=== PATIENT | female | born 1960 | race Caucasian/White ===

== ENCOUNTER 2020-06-17 17:22 | Outpatient (REF) | payer OTHER, SELFPAY ==
--- NOTE | 2020-06-17 | MM_ITS ---
EXAMINATION: MM SCREENING DIGITAL BREAST TOMOSYNTHESIS, BILATERAL CLINICAL INFORMATION: Screening. Asymptomatic. The lifetime risk of breast cancer based on the Tyrer-Cuzick Model is 7%. COMPARISON: Mammography: 10/24/2018, 09/09/2017, 07/09/2016, 06/26/2016 TECHNIQUE: Digital breast tomosynthesis is performed in both the craniocaudal and mediolateral oblique views along with computer-aided detection (CAD). Synthesized 2D images are generated from the tomosynthesis. FINDINGS: The breasts are extremely dense, which lowers the sensitivity of mammography (ACR BI-RADS breast composition Category d). There are no significant masses, abnormal calcifications, or other abnormalities. Parenchymal pattern is similar to prior exams. No significant changes. MM/MM tomosynthesis screening BI IMPRESSION: No significant changes from prior studies. ASSESSMENT: BI-RADS 1: Negative RECOMMENDATION: Routine annual mammography screening. This patient's information was entered into a reminder system with a target due date for their next mammogram.
== END 2020-06-17 17:23 | disposition home or self-care (01) ==
LOC: HO.MAMMO 17:22
PROVIDERS: PCP Internal Medicine; Visit Provider Internal Medicine
DX: Z12.31 Encounter for screening mammogram for malignant neoplasm of breast (principal)
CPT/HCPCS: 77063; 77067

== ENCOUNTER → 2020-08-06 15:20 | Outpatient (BNVA) | payer OTHER, SELFPAY | PROVIDERS: PCP Internal Medicine; Visit Provider Internal Medicine Cardiovascular Disease | DX: R93.1 Abnormal findings on diagnostic imaging of heart and coronary circulation (principal) | CPT/HCPCS: 93005; 99212 ==

== ENCOUNTER 2020-08-10 09:53 | Outpatient (REF) | payer OTHER, SELFPAY ==
[2020-08-10 10:24] LABS: Basophils Absolute Auto 0.1 X10*3/uL (0.0-0.2); Basophils Percent Auto 1.5 % (0-2); Eosinophils Absolute Auto 0.2 X10*3/uL (0.0-0.4); Hematocrit 40.1 % (37-47); Hemoglobin 13.3 g/dl (12.0-16.0); Imm Gran Abs Auto 0.01 X10*3/uL (0.00-0.03); Imm Gran Pct Auto 0.2 % (0.0-0.4); Lymphocytes Absolute Auto 1.6 X10*3/uL (1.2-4.9); Lymphocytes Percent Auto 33.6 % (20-40); MANUAL DIFF FLAG NO; Mean Corpuscular HGB Conc 33.2 g/dl (31.0-35.0); Mean Corpuscular Hemoglobin 30.7 pg (27.0-33.0); Mean Corpuscular Volume 92.6 fL (80-98); Mean Platelet Volume 9.3 fL (9.4-12.3); Monocytes Absolute Auto 0.3 X10*3/uL (0.1-1.2); Neutrophils Absolute Auto 2.5 X10*3/uL (2.0-8.3); Neutrophils Percent Auto 53.7 % (45-73); Platelet Count 228 X10*3/uL (160-400); Red Blood Count 4.33 X10*6/uL (4.20-5.50); Red Cell Distribution Width 12.4 % (11.0-16.0); White Blood Count 4.7 X10*3/uL (4.8-10.8)
[2020-08-10 11:01] LABS: Cholesterol 219 mg/dL; HDL Cholesterol 81 mg/dL; LDL Cholesterol Calculated 128 mg/dl; Triglycerides 53 mg/dL
[2020-08-10 11:02] LABS: Alanine Aminotransferase 38 U/L (0-31); Albumin Level 4.3 g/dL (3.5-5.0); Alkaline Phosphatase 62 U/L (39-117); Anion Gap 9 (12-20); Aspartate Amino Transferase 30 U/L (5-31); Bilirubin Total 0.5 mg/dL (0.0-1.0); Blood Urea Nitrogen 11 mg/dL (9-16); Calcium 9.1 mg/dL (8.4-10.2); Carbon Dioxide 30 mmol/L (22-29); Chloride 102 mmol/L (96-108); Cholesterol 219 mg/dL; Estimated Glomerular Filt Rate > 60; Glucose Fasting 96 mg/dL (60-99); HDL Cholesterol 79 mg/dL; LDL Cholesterol Calculated 130 mg/dl; Potassium 4.5 mmol/l (3.3-5.1); Sodium 136 mmol/L (135-145); Total Protein 6.7 g/dL (6.5-8.0); Triglycerides 53 mg/dL
[2020-08-10 11:17] LABS: T4 Thyroxine 7.3 ug/dL (4.5-12.0); Thyroid Stimulating Hormone 3.03 uIU/mL (0.32-4.0); Vitamin D 25-OH Total 43.7 ng/mL (>30)
[2020-08-12 08:46] LABS: Folate 10.8 ng/mL (> or = 4.0); Vitamin B12 562 pg/mL (200-900)
[2020-08-12 14:02] LABS: CRP High Sensitivity <0.3 mg/L
== END 2020-08-10 09:54 | disposition home or self-care (01) ==
LOC: HO.LAB 09:53
PROVIDERS: Absent Provider Internal Medicine Cardiovascular Disease; PCP Internal Medicine; Visit Provider Internal Medicine
DX: I25.10 Atherosclerotic heart disease of native coronary artery without angina pectoris (principal); R93.1 Abnormal findings on diagnostic imaging of heart and coronary circulation; F33.9 Major depressive disorder, recurrent, unspecified; I10 Essential (primary) hypertension; Z82.49 Family history of ischemic heart disease and other diseases of the circulatory system
CPT/HCPCS: 36415; 80053; 80061; 82306; 82607; 82746; 84436; 84443; 85025; 86141

== ENCOUNTER 2020-12-07 08:19 | Outpatient (REF) | payer OTHER, SELFPAY ==
[2020-12-07 09:36] LABS: Alanine Aminotransferase 28 U/L (0-31); Albumin Level 4.4 g/dL (3.5-5.0); Alkaline Phosphatase 66 U/L (39-117); Anion Gap 14 (12-20); Aspartate Amino Transferase 24 U/L (5-31); Bilirubin Total 0.3 mg/dL (0.0-1.0); Blood Urea Nitrogen 16 mg/dL (9-16); Calcium 9.3 mg/dL (8.4-10.2); Carbon Dioxide 27 mmol/L (22-29); Chloride 101 mmol/L (96-108); Cholesterol 149 mg/dL; Estimated Glomerular Filt Rate 58; Glucose Random 103 mg/dL (60-115); HDL Cholesterol 74 mg/dL; LDL Cholesterol Calculated 67 mg/dl; Potassium 5.8 mmol/L (3.3-5.1); Sodium 136 mmol/L (135-145); Total Protein 6.7 g/dL (6.5-8.0); Triglycerides 41 mg/dL
== END 2020-12-07 08:20 | disposition home or self-care (01) ==
LOC: HO.LAB 08:19
PROVIDERS: PCP Internal Medicine; Visit Provider Internal Medicine
DX: E78.5 Hyperlipidemia, unspecified (principal); E78.00 Pure hypercholesterolemia, unspecified
CPT/HCPCS: 36415; 80053; 80061

== ENCOUNTER 2020-12-14 07:28 | Outpatient (REF) | payer OTHER, SELFPAY ==
[2020-12-14 08:26] LABS: Anion Gap 11 (12-20); Blood Urea Nitrogen 14 mg/dL (9-16); Calcium 9.7 mg/dL (8.4-10.2); Carbon Dioxide 29 mmol/L (22-29); Chloride 98 mmol/L (96-108); Estimated Glomerular Filt Rate > 60; Glucose Random 103 mg/dL (60-115); Potassium 5.4 mmol/L (3.3-5.1); Sodium 133 mmol/L (135-145)
== END 2020-12-14 07:29 | disposition home or self-care (01) ==
LOC: HO.LAB 07:28
PROVIDERS: Visit Provider Internal Medicine
DX: E87.5 Hyperkalemia (principal)
CPT/HCPCS: 36415; 80048

== ENCOUNTER 2021-01-25 07:33 | Outpatient (REF) | payer OTHER, SELFPAY ==
[2021-01-25 08:37] LABS: Estimated Average Glucose 117 mg/dL; Hemoglobin A1c % 5.7 %
[2021-01-25 08:48] LABS: Anion Gap 14 (12-20); Blood Urea Nitrogen 9 mg/dL (9-16); Calcium 9.2 mg/dL (8.4-10.2); Carbon Dioxide 25 mmol/L (22-29); Chloride 102 mmol/L (96-108); Estimated Glomerular Filt Rate > 60; Glucose Random 102 mg/dL (60-115); Potassium 5.8 mmol/L (3.3-5.1); Sodium 135 mmol/L (135-145)
== END 2021-01-25 07:34 | disposition home or self-care (01) ==
LOC: HO.LAB 07:33
PROVIDERS: PCP Internal Medicine; Visit Provider Internal Medicine
DX: E87.5 Hyperkalemia (principal); R73.01 Impaired fasting glucose
CPT/HCPCS: 36415; 80048; 83036

== ENCOUNTER 2021-02-03 06:33 | Outpatient (REF) | payer OTHER, SELFPAY ==
[2021-02-03 08:13] LABS: Anion Gap 15 (12-20); Blood Urea Nitrogen 12 mg/dL (9-16); Calcium 9.2 mg/dL (8.4-10.2); Carbon Dioxide 24 mmol/L (22-29); Chloride 102 mmol/L (96-108); Estimated Glomerular Filt Rate > 60; Glucose Random 96 mg/dL (60-115); Potassium 4.7 mmol/L (3.3-5.1); Sodium 136 mmol/L (135-145)
== END 2021-02-03 06:34 | disposition home or self-care (01) ==
LOC: HO.LAB 06:33
PROVIDERS: PCP Internal Medicine; Visit Provider Internal Medicine
DX: E87.5 Hyperkalemia (principal)
CPT/HCPCS: 36415; 80048

== ENCOUNTER → 2021-02-04 15:23 | Outpatient (BNVA) | payer OTHER, SELFPAY | PROVIDERS: PCP Internal Medicine; Referring Provider Internal Medicine; Visit Provider Internal Medicine Cardiovascular Disease | DX: R93.1 Abnormal findings on diagnostic imaging of heart and coronary circulation (principal) | CPT/HCPCS: 99212 ==

== ENCOUNTER 2021-03-29 07:28 | Outpatient (REF) | payer OTHER, SELFPAY ==
[2021-03-29 08:32] LABS: MANUAL DIFF FLAG NO
[2021-03-29 08:44] LABS: Basophils Absolute Auto 0.1 X10*3/uL (0.0-0.2); Basophils Percent Auto 1.1 % (0-2); Eosinophils Absolute Auto 0.2 X10*3/uL (0.0-0.4); Eosinophils Percent Auto 3.4 % (0-4); Hematocrit 43.5 % (37-47); Hemoglobin 14.2 g/dl (12.0-16.0); Imm Gran Abs Auto 0.02 X10*3/uL (0.00-0.03); Imm Gran Pct Auto 0.4 % (0.0-0.4); Lymphocytes Absolute Auto 1.9 X10*3/uL (1.2-4.9); Lymphocytes Percent Auto 34.9 % (20-40); Mean Corpuscular HGB Conc 32.6 g/dl (31.0-35.0); Mean Corpuscular Hemoglobin 30.3 pg (27.0-33.0); Mean Corpuscular Volume 92.9 fL (80-98); Mean Platelet Volume 10.1 fL (9.4-12.3); Monocytes Absolute Auto 0.5 X10*3/uL (0.1-1.2); Monocytes Percent Auto 8.4 % (2-11); Neutrophils Absolute Auto 2.8 X10*3/uL (2.0-8.3); Neutrophils Percent Auto 51.8 % (45-73); Platelet Count 254 X10*3/uL (160-400); Red Blood Count 4.68 X10*6/uL (4.20-5.50); Red Cell Distribution Width 12.6 % (11.0-16.0); White Blood Count 5.4 X10*3/uL (4.8-10.8)
[2021-03-29 08:55] LABS: Estimated Average Glucose 117 mg/dL; Hemoglobin A1C 150.5626 umol/L; Hemoglobin A1c % 5.7 %
[2021-03-29 09:10] LABS: Alanine Aminotransferase 27 U/L (0-31); Albumin Level 4.3 g/dL (3.5-5.0); Alkaline Phosphatase 67 U/L (39-117); Anion Gap 12 (12-20); Aspartate Amino Transferase 28 U/L (5-31); Bilirubin Total 0.5 mg/dL (0.0-1.0); Blood Urea Nitrogen 11 mg/dL (9-16); Calcium 9.2 mg/dL (8.4-10.2); Carbon Dioxide 28 mmol/L (22-29); Chloride 103 mmol/L (96-108); Cholesterol 157 mg/dL; Estimated Glomerular Filt Rate 57; Glucose Random 105 mg/dL (60-115); HDL Cholesterol 83 mg/dL; LDL Cholesterol Calculated 67 mg/dl; Potassium 5.2 mmol/L (3.3-5.1); Sodium 138 mmol/L (135-145); Total Protein 6.7 g/dL (6.5-8.0); Triglycerides 38 mg/dL
[2021-03-29 09:21] LABS: Thyroid Stimulating Hormone 3.81 uIU/mL (0.32-4.0)
== END 2021-03-29 07:29 | disposition home or self-care (01) ==
LOC: HO.LAB 07:28
PROVIDERS: PCP Internal Medicine; Visit Provider Internal Medicine
DX: R73.01 Impaired fasting glucose (principal); E78.00 Pure hypercholesterolemia, unspecified; E87.5 Hyperkalemia
CPT/HCPCS: 36415; 80053; 80061; 83036; 84443; 85025

== ENCOUNTER 2021-12-03 14:57 | Outpatient (REF) | payer OTHER, SELFPAY ==
--- NOTE | ~2021-12-03 | MM_ITS ---
EXAMINATION: MM SCREENING DIGITAL BREAST TOMOSYNTHESIS, BILATERAL CLINICAL INFORMATION: Screening. Asymptomatic. The lifetime risk of breast cancer based on the Tyrer-Cuzick Model is 7%. COMPARISON: Mammography: 06/17/2020, 10/24/2018, 09/09/2017 TECHNIQUE: Digital breast tomosynthesis is performed in both the craniocaudal and mediolateral oblique views along with computer-aided detection (CAD). Synthesized 2D images are generated from the tomosynthesis. Additional right MLO view is provided. FINDINGS: The breasts are extremely dense, which lowers the sensitivity of mammography (ACR BI-RADS breast composition Category d). There are no significant masses, abnormal calcifications, or other abnormalities. No significant changes from prior studies. No architectural abnormality or developing density. MM/MM tomosynthesis screening BI IMPRESSION: No mammographic evidence of malignancy. ASSESSMENT: BI-RADS 1: Negative RECOMMENDATION: Routine annual mammography screening. This patient's information was entered into a reminder system with a target due date for their next mammogram.
== END 2021-12-03 14:58 | disposition home or self-care (01) ==
LOC: HO.MAMMO 14:57
PROVIDERS: PCP Internal Medicine; Visit Provider Advanced Practice Midwife
DX: Z12.31 Encounter for screening mammogram for malignant neoplasm of breast (principal)
CPT/HCPCS: 77063; 77067

== ENCOUNTER 2021-12-13 07:38 | Outpatient (REF) | payer OTHER, SELFPAY ==
[2021-12-13 08:02] LABS: MANUAL DIFF FLAG NO
[2021-12-13 08:10] LABS: Basophils Absolute Auto 0.1 X10*3/uL (0.0-0.2); Basophils Percent Auto 1.3 % (0-2); Eosinophils Absolute Auto 0.2 X10*3/uL (0.0-0.4); Eosinophils Percent Auto 4.4 % (0-4); Hematocrit 41.2 % (37.0-47.0); Hemoglobin 13.5 g/dl (12.0-16.0); Imm Gran Abs Auto 0.02 X10*3/uL (0.00-0.03); Imm Gran Pct Auto 0.4 % (0.0-0.4); Lymphocytes Absolute Auto 1.6 X10*3/uL (1.2-4.9); Lymphocytes Percent Auto 33.8 % (20-40); Mean Corpuscular HGB Conc 32.8 g/dl (31.0-35.0); Mean Corpuscular Hemoglobin 29.9 pg (27.0-33.0); Mean Corpuscular Volume 91.2 fL (80.0-98.0); Mean Platelet Volume 9.3 fL (9.4-12.3); Monocytes Absolute Auto 0.3 X10*3/uL (0.1-1.2); Monocytes Percent Auto 7.4 % (2-11); Neutrophils Absolute Auto 2.4 x10*3/uL (2.0-8.3); Neutrophils Percent Auto 52.7 % (45-73); Platelet Count 209 X10*3/uL (160-400); Red Blood Count 4.52 X10*6/uL (4.20-5.50); Red Cell Distribution Width 12.6 % (11.0-16.0); White Blood Count 4.6 X10*3/uL (4.8-10.8)
[2021-12-13 08:23] LABS: Estimated Average Glucose 117 mg/dL; Hemoglobin A1c % 5.7 %
[2021-12-13 08:53] LABS: Thyroid Stimulating Hormone 3.32 uIU/mL (0.32-4.0); Vitamin D 25-OH Total 55.6 ng/mL (>30)
[2021-12-13 09:05] LABS: Alanine Aminotransferase 28 U/L (0-31); Albumin Level 4.2 g/dL (3.5-5.0); Alkaline Phosphatase 64 U/L (39-117); Anion Gap 11 (12-20); Aspartate Amino Transferase 26 U/L (5-31); Bilirubin Total 0.8 mg/dL (0.0-1.0); Blood Urea Nitrogen 15 mg/dL (9-16); Calcium 9.1 mg/dL (8.4-10.2); Carbon Dioxide 29 mmol/L (22-29); Chloride 102 mmol/L (96-108); Cholesterol 157 mg/dL; Estimated Glomerular Filt Rate > 60; Glucose Random 97 mg/dL (60-115); HDL Cholesterol 80 mg/dL; LDL Cholesterol Calculated 72 mg/dl; Potassium 4.7 mmol/L (3.3-5.1); Sodium 137 mmol/L (135-145); Total Protein 6.5 g/dL (6.5-8.0); Triglycerides 29 mg/dL
[2021-12-15 07:24] LABS: Folate 7.5 ng/mL (> or = 4.0); Vitamin B12 656 pg/mL (200-900)
== END 2021-12-13 07:39 | disposition home or self-care (01) ==
LOC: HO.LAB 07:38
PROVIDERS: PCP Internal Medicine; Visit Provider Internal Medicine
DX: R93.1 Abnormal findings on diagnostic imaging of heart and coronary circulation (principal); E78.00 Pure hypercholesterolemia, unspecified
CPT/HCPCS: 36415; 80053; 80061; 82306; 82607; 82746; 83036; 84439; 84443; 85025

== ENCOUNTER 2021-12-22 11:57 | Outpatient (REF) | payer OTHER, SELFPAY ==
--- NOTE | ~2021-12-22 | US_ITS ---
EXAMINATION: US SCREENING ULTRASOUND BREAST, BILATERAL CLINICAL INFORMATION: Dense breasts on mammography. Screening ultrasound. Tyrer-Katharinazick Score 7%. COMPARISON: Mammography 12/03/2021 ultrasound right breast 07/09/2016 TECHNIQUE: Ultrasound is performed using grayscale imaging and color Doppler. Imaging is performed to include the four quadrants and retroareolar region. Both breasts are imaged. FINDINGS: Right breast: There is no suspicious finding by ultrasound. There is no cystic or solid mass or focal architectural abnormality. Left breast: There is no suspicious finding by ultrasound. There is no cystic or solid mass or focal architectural abnormality. US/US breast LT complete IMPRESSION: Normal study. ASSESSMENT: BI-RADS 1: Negative RECOMMENDATION: Routine annual mammography screening. This patient's information was entered into a reminder system with a target due date for their next mammogram.
--- NOTE | ~2021-12-22 | US_ITS ---
EXAMINATION: US SCREENING ULTRASOUND BREAST, BILATERAL CLINICAL INFORMATION: Dense breasts on mammography. Screening ultrasound. Tyrer-Katharinazick Score 7%. COMPARISON: Mammography 12/03/2021 ultrasound right breast 07/09/2016 TECHNIQUE: Ultrasound is performed using grayscale imaging and color Doppler. Imaging is performed to include the four quadrants and retroareolar region. Both breasts are imaged. FINDINGS: Right breast: There is no suspicious finding by ultrasound. There is no cystic or solid mass or focal architectural abnormality. Left breast: There is no suspicious finding by ultrasound. There is no cystic or solid mass or focal architectural abnormality. US/US breast RT complete IMPRESSION: Normal study. ASSESSMENT: BI-RADS 1: Negative RECOMMENDATION: Routine annual mammography screening. This patient's information was entered into a reminder system with a target due date for their next mammogram.
== END 2021-12-22 11:58 | disposition home or self-care (01) ==
LOC: HO.MAMMO 11:57
PROVIDERS: PCP Internal Medicine; Visit Provider Internal Medicine
DX: R92.2 Inconclusive mammogram (principal)
CPT/HCPCS: 76641

== ENCOUNTER → 2022-02-05 15:02 | Outpatient (BNVA) | payer OTHER, SELFPAY | PROVIDERS: PCP Internal Medicine; Referring Provider Internal Medicine; Visit Provider Internal Medicine Cardiovascular Disease | DX: R93.1 Abnormal findings on diagnostic imaging of heart and coronary circulation (principal); Z79.899 Other long term (current) drug therapy | CPT/HCPCS: 93005; 99212 ==

== ENCOUNTER 2022-12-12 07:19 | Outpatient (REF) | payer OTHER, SELFPAY ==
[2022-12-12 07:41] LABS: MANUAL DIFF FLAG NO
[2022-12-12 08:05] LABS: Basophils Absolute Auto 0.1 X10*3/uL (0.0-0.2); Eosinophils Absolute Auto 0.2 X10*3/uL (0.0-0.4); Eosinophils Percent Auto 2.5 % (0-4); Hematocrit 40.6 % (37.0-47.0); Hemoglobin 13.4 g/dl (12.0-16.0); Imm Gran Abs Auto 0.03 X10*3/uL (0.00-0.03); Imm Gran Pct Auto 0.3 % (0.0-0.4); Lymphocytes Absolute Auto 1.2 X10*3/uL (1.2-4.9); Lymphocytes Percent Auto 14.2 % (20-40); Mean Corpuscular Hemoglobin 30.4 pg (27.0-33.0); Mean Corpuscular Volume 92.1 fL (80.0-98.0); Mean Platelet Volume 9.6 fL (9.4-12.3); Monocytes Absolute Auto 0.7 X10*3/uL (0.1-1.2); Monocytes Percent Auto 7.7 % (2-11); Neutrophils Absolute Auto 6.4 x10*3/uL (2.0-8.3); Neutrophils Percent Auto 74.3 % (45-73); Platelet Count 213 X10*3/uL (160-400); Red Blood Count 4.41 X10*6/uL (4.20-5.50); Red Cell Distribution Width 12.4 % (11.0-16.0); White Blood Count 8.7 X10*3/uL (4.8-10.8)
[2022-12-12 08:40] LABS: Alanine Aminotransferase 22 U/L (0-31); Albumin Level 4.2 g/dL (3.5-5.0); Alkaline Phosphatase 65 U/L (39-117); Anion Gap 10 (12-20); Aspartate Amino Transferase 22 U/L (5-31); Bilirubin Total 0.8 mg/dL (0.0-1.0); Blood Urea Nitrogen 11 mg/dL (9-16); Calcium 8.9 mg/dL (8.4-10.2); Carbon Dioxide 29 mmol/L (22-29); Chloride 104 mmol/L (96-108); Cholesterol 155 mg/dL; Estimated Glomerular Filt Rate > 60; Glucose Random 114 mg/dL (60-115); HDL Cholesterol 74 mg/dL; LDL Cholesterol Calculated 73 mg/dl; Potassium 4.3 mmol/L (3.3-5.1); Sodium 139 mmol/L (135-145); Total Protein 6.4 g/dL (6.5-8.0); Triglycerides 43 mg/dL
[2022-12-12 09:09] LABS: Folate 14.8 ng/mL (> or = 4.0); Free T4 (Free Thyroxine) 0.95 ng/dL (0.71-1.85); Thyroid Stimulating Hormone 3.76 uIU/mL (0.32-4.0); Vitamin B12 1037 pg/mL (200-900); Vitamin D 25-OH Total 69.3 ng/mL (>30)
== END 2022-12-12 07:20 | disposition home or self-care (01) ==
LOC: HO.LAB 07:19
PROVIDERS: PCP Internal Medicine; Visit Provider Internal Medicine
DX: E78.00 Pure hypercholesterolemia, unspecified (principal); E55.9 Vitamin D deficiency, unspecified
CPT/HCPCS: 36415; 80053; 80061; 82306; 82607; 82746; 84439; 84443; 85025

== ENCOUNTER 2023-01-07 14:30 | Outpatient (REF) | payer OTHER, SELFPAY ==
--- NOTE | ~2023-01-07 | MM_ITS ---
EXAMINATION: MM SCREENING DIGITAL BREAST TOMOSYNTHESIS, BILATERAL CLINICAL INFORMATION: Screening. Asymptomatic. The lifetime risk of breast cancer based on the Tyrer-Cuzick Model is 5.7%. COMPARISON: Mammography: December 22, 2021 and studies dating back to June 26, 2016 TECHNIQUE: Digital breast tomosynthesis is performed in both the craniocaudal and mediolateral oblique views along with computer-aided detection (CAD). Synthesized 2D images are generated from the tomosynthesis. FINDINGS: The breasts are extremely dense, which lowers the sensitivity of mammography (ACR BI-RADS breast composition Category d). There are no significant masses, abnormal calcifications, or other abnormalities. MM/MM tomosynthesis screening BI IMPRESSION: No significant changes ASSESSMENT: BI-RADS 1: Negative RECOMMENDATION: Routine annual mammography screening. This patient's information was entered into a reminder system with a target due date for their next mammogram.
== END 2023-01-07 14:31 | disposition home or self-care (01) ==
LOC: HO.MAMMO 14:30
PROVIDERS: PCP Internal Medicine; Visit Provider Internal Medicine
DX: Z12.31 Encounter for screening mammogram for malignant neoplasm of breast (principal)
CPT/HCPCS: 77063; 77067

== ENCOUNTER 2023-06-12 08:12 | Outpatient (REF) | payer OTHER, SELFPAY ==
[2023-06-12 08:45] LABS: MANUAL DIFF FLAG NO
[2023-06-12 08:52] LABS: Basophils Absolute Auto 0.1 X10*3/uL (0.0-0.2); Basophils Percent Auto 1.3 % (0-2); Eosinophils Absolute Auto 0.1 X10*3/uL (0.0-0.4); Eosinophils Percent Auto 2.6 % (0-4); Hematocrit 41.3 % (37.0-47.0); Hemoglobin 13.7 g/dl (12.0-16.0); Imm Gran Abs Auto 0.01 X10*3/uL (0.00-0.03); Imm Gran Pct Auto 0.2 % (0.0-0.4); Lymphocytes Absolute Auto 1.5 X10*3/uL (1.2-4.9); Lymphocytes Percent Auto 32.6 % (20-40); Mean Corpuscular HGB Conc 33.2 g/dl (31.0-35.0); Mean Corpuscular Volume 90.4 fL (80.0-98.0); Mean Platelet Volume 9.4 fL (9.4-12.3); Monocytes Absolute Auto 0.4 X10*3/uL (0.1-1.2); Monocytes Percent Auto 8.8 % (2-11); Neutrophils Absolute Auto 2.5 x10*3/uL (2.0-8.3); Neutrophils Percent Auto 54.5 % (45-73); Platelet Count 228 X10*3/uL (160-400); Red Blood Count 4.57 X10*6/uL (4.20-5.50); Red Cell Distribution Width 12.5 % (11.0-16.0); White Blood Count 4.7 X10*3/uL (4.8-10.8)
[2023-06-12 09:01] LABS: Estimated Average Glucose 117 mg/dL; Hemoglobin A1c % 5.7 % (<6.0)
[2023-06-12 09:29] LABS: Alanine Aminotransferase 29 U/L (0-31); Albumin Level 4.2 g/dL (3.5-5.0); Alkaline Phosphatase 63 U/L (39-117); Anion Gap 13 (12-20); Aspartate Amino Transferase 31 U/L (5-31); Bilirubin Total 0.7 mg/dL (0.0-1.0); Blood Urea Nitrogen 8 mg/dL (9-16); Calcium 9.3 mg/dL (8.4-10.2); Carbon Dioxide 27 mmol/L (22-29); Chloride 101 mmol/L (96-108); Cholesterol 140 mg/dL (<200); Estimated Glomerular Filt Rate > 60; Glucose Random 99 mg/dL (60-115); HDL Cholesterol 80 mg/dL (>40); LDL Cholesterol Calculated 54 mg/dL (<100); Potassium 4.5 mmol/L (3.3-5.1); Sodium 136 mmol/L (135-145); Total Protein 6.7 g/dL (6.5-8.0); Triglycerides 34 mg/dL (<150)
[2023-06-12 09:49] LABS: Thyroid Stimulating Hormone 3.65 uIU/mL (0.32-4.0)
[2023-06-12 10:01] LABS: Folate 14.3 ng/mL (> or = 4.0); Vitamin B12 1640 pg/mL (200-900)
== END 2023-06-12 08:13 | disposition home or self-care (01) ==
LOC: HO.LAB 08:12
PROVIDERS: PCP Internal Medicine; Visit Provider Internal Medicine
DX: E78.00 Pure hypercholesterolemia, unspecified (principal); R73.01 Impaired fasting glucose; K21.9 Gastro-esophageal reflux disease without esophagitis
CPT/HCPCS: 36415; 80053; 80061; 82607; 82746; 83036; 84439; 84443; 85025

== ENCOUNTER 2023-06-15 13:23 | Outpatient (AMB) | payer OTHER, SELFPAY ==
[2023-06-15 13:24] VITALS: BP 130/72; PULSE 64; O2SAT 100; BMI 21.6
--- NOTE | 2023-06-15 13:24 | MHC.PC.OV ---
Vital Signs 06/15/23 13:24 Height 5 ft 4 in Weight 126 lb 0.4 oz BMI 21.6 BP 130/72 Blood Pressure Location Lt brachial Position Sitting Pulse 64 Pulse Source Pulse Oximeter Pulse Oximetry (%) 100 Oxygen Delivery Method Room Air Intake Visit Reasons: Hypercholesterolemia hypertension Registered Sales Assistant Required: No Allergies bee venom protein (honey bee) Allergy (Unknown, Verified 06/15/23 13:24) Hives meperidine [Demerol] Allergy (Unknown, Verified 06/15/23 13:24) vomiting Medication List - Last Reconciled 06/15/23 by Kev Romo MD albuterol sulfate 90 mcg/actuation 1 puff PO Q4H PRN amlodipine 5 mg PO DAILY 90 days atorvastatin 40 mg PO DAILY bupropion HCl 100 mg PO DAILY citalopram 10 mg PO DAILY diphenhydramine HCl (Benadryl Allergy) 12.5 mg PO BEDTIME PRN fluticasone propionate 50 mcg/actuation 1 spray intranasal DAILY [MYOcom plus 1.5 tabs PO .QD] omega-3 fatty acids (Fish Oil Concentrate) 1,000 mg PO DAILY Tobacco use date assessed: 06/15/23 Fall risk assessment: No Falls in past year Last assessed Fall Risk: 06/15/23 Dental Screening Dental Screen Date: 06/15/23 Did you have a dental visit in the last 12 months?: Yes Did you have a dental problem in the last 6 months where you did not have access to dental care?: No Was dental information given to patient?: Patient has dentist HPI Hypercholesterolemia hypertension HPI Details 62-year-old female with hypertension hypercholesterolemia GERD asthma impaired glucose tolerance in generalized anxiety disorder last seen in November for physical exam patient is here for follow-up. Patient's colonoscopy is up-to-date, mammogram up-to-date bone density has been normal in April 2021.. detox cleanse - in [place] - - was told raúl overload. Discussed about the lab works discussed about the medications. Patient has been doing good otherwise no nausea no vomiting no chest pains no shortness of breath no bowel bladder symptoms. [facility] Medical History Allergic rhinitis Depression History of alcohol abuse History of seizure Insomnia Leukopenia Surgical History Hx of cataract surgery Hx of colonoscopy Family History Father CVD (cardiovascular disease) Myocardial infarction Mother CVD (cardiovascular disease) Myocardial infarction CHF (congestive heart failure) Maternal Grandfather Prostate cancer Brother Myocardial infarction Sister Hypertension Family/Other Depression Social History Housing: House Alcohol intake: former Patient Tobacco Use Status: Former Tobacco user Tobacco use type: Cigarette Years Smoked: quit 1979 e-Cigarette/Vaping Use: Never Used Current occupational status: retired Cognitive needs: No Hearing needs: No Vision needs: Yes Questionnaire Thrive Questionnaire Date Thrive assessed: 12/14/22 AUDIT C Alcohol Use Questionnaire (AUDIT-C) 1. How often do you have a drink containing alcohol?: Never 2. How many drinks containing alcohol do you have on a typical day when you are drinking?: 1 or 2 3. How often do you have six or more drinks on one occasion?: Never Total Score: 0 BISHOP-7 AMB Questionnaire BISHOP-7 Date BISHOP - 7 assessed: 12/14/22 Source: Developed by Drs. Randolph Clifford, Kianna Monterroso, Vance Varghese and colleagues, with an educational kal from [employer]. Physical exam (Primary Care) Vital Signs: Last Vital Signs Pulse 64 06/15/23 13:24 BP 130/72 06/15/23 13:24 Pulse Ox 100 06/15/23 13:24 Oxygen Delivery Method Room Air 06/15/23 13:24 BMI result Body Mass Index 21.6 Tobacco/Smoking Status: Tobacco use Status Tobacco use date assessed 06/15/23 06/15/23 13:32 Patient Tobacco Use Status Former Tobacco user 06/15/23 13:32 Tobacco use type Cigarette 06/15/23 13:32 e-Cigarette/Vaping Use Never Used 06/15/23 13:32 Thrive Assessment: Date of Thrive Assessment Date Thrive assessed 12/14/22 06/15/23 13:32 Const General: alert; No acute distress Eyes Conjunctivae: conjunctivae normal Resp Auscultation: clear to auscultation bilaterally Cardio Rate: regular rate Rhythm: regular rhythm GI Inspection: Yes normal to inspection Extrem General: Yes normal to inspection and No edema Office Procedures Flu Questionnaire Does the patient have a severe egg allergy?: No Does the patient have severe life threatening allergies?: No Does the patient have a fever or illness today?: No Has the patient ever had Guillain-[place] Syndrome?: No Has the patient ever had any past reaction to a flu shot?: No Immunizations flu vacc [id number] 6mos up(PF) 60 mcg(15 mcgx4)/0.5 mL IM syringe Performing Provider: Kev Romo MD Performing Location: [facility] [place] [facility] Administered by: MATEO Hastings on 06/15/23 13:34 Dose Route Admin Location Dispensed Lot Number Expiration Date NDC Ibm Mainframe Developer 0.5 mL IM Left Deltoid 0.5 mL [id number] 02/20/24 95401-839-46 [employer] VIS Given Date VIS Provided VIS Publication Date 06/15/23 Single Vaccine 21 Eligibility Eligibility Date Funding Source Not [facility] Eligible 06/15/23 Private Assessment and Plan Assessment & Plan (1) HTN (hypertension): Code(s): I10 - Essential (primary) hypertension Qualifiers: Hypertension type: essential hypertension Qualified Code(s): I10 - Essential (primary) hypertension Plan: Continue with blood pressure medication. Decrease salt intake and exercise patient on amlodipine 5 mg once a day (2) Hyperlipidemia: Code(s): E78.5 - Hyperlipidemia, unspecified Qualifiers: Hyperlipidemia type: pure hypercholesterolemia Qualified Code(s): E78.00 - Pure hypercholesterolemia, unspecified Plan: Avoid fried foods, chicken skin, eggs, butter margarine, pastries and meat. Be it pork or beef they have a lot of cholesterol LDL goal of less than 70 and triglyceride of less than 150. Patient on atorvastatin 40 mg once a day (3) GERD (gastroesophageal reflux disease): Code(s): K21.9 - Gastro-esophageal reflux disease without esophagitis Qualifiers: Esophagitis presence: without esophagitis Qualified Code(s): K21.9 - Gastro-esophageal reflux disease without esophagitis Plan: Avoid the foods that causes that usually spicy foods, tomato products, juices, coffee, soda and foods that your sensitive to. After eating do not lie down, allow 3-4 hours before in lie down. And keep the head of bed above 30 degrees to avoid the acid from going up. (4) Asthma: Code(s): J45.909 - Unspecified asthma, uncomplicated Qualifiers: Asthma severity: mild Asthma persistence: intermittent Asthma complication type: uncomplicated Qualified Code(s): J45.20 - Mild intermittent asthma, uncomplicated Plan: Continue with inhaler as needed (5) Impaired fasting blood sugar: Code(s): R73.01 - Impaired fasting glucose Plan: Decrease the amount of carbohydrate intake, pasta, bread, rice and potatoes are all sugar and that is aside from all the sweet stuff, remember that fruits are good but they are Sweet also. Stable (6) Generalized anxiety disorder: Comment: Psychiatrist every 3 months Code(s): F41.1 - Generalized anxiety disorder Plan: Continue with counseling and therapy Orders: Orders Influenza [id number] Immunization Today Z23 - Encounter for immunization Coding Level of Care Code Est Pt Level 4 (85628) Diagnoses Essential hypertension I10 Hypertension type: essential hypertension Pure hypercholesterolemia E78.00 Hyperlipidemia type: pure hypercholesterolemia Gastroesophageal reflux disease without esophagitis K21.9 Esophagitis presence: without esophagitis Mild intermittent asthma without complication J45.20 Asthma severity: mild Asthma persistence: intermittent Asthma complication type: uncomplicated Impaired fasting blood sugar R73.01 Generalized anxiety disorder F41.1
== END 2023-06-15 14:10 | disposition home or self-care (01) ==
PROVIDERS: Visit Provider Internal Medicine
DX: I10 Essential (primary) hypertension (principal); E78.00 Pure hypercholesterolemia, unspecified; K21.9 Gastro-esophageal reflux disease without esophagitis; J45.20 Mild intermittent asthma, uncomplicated; R73.01 Impaired fasting glucose; F41.1 Generalized anxiety disorder; Z23 Encounter for immunization
CPT/HCPCS: 90471; 90686; 99214

== ENCOUNTER 2023-12-15 09:50 | Outpatient (REF) | payer MEDICARE, SELFPAY ==
[2023-12-15 10:48] LABS: Basophils Absolute Auto 0.1 X10*3/uL (0.0-0.2); Basophils Percent Auto 1.6 % (0-2); Eosinophils Absolute Auto 0.3 X10*3/uL (0.0-0.4); Eosinophils Percent Auto 5.1 % (0-4); Hematocrit 40.2 % (37.0-47.0); Imm Gran Abs Auto 0.02 X10*3/uL (0.00-0.03); Imm Gran Pct Auto 0.4 % (0.0-0.4); Lymphocytes Absolute Auto 1.7 X10*3/uL (1.2-4.9); Lymphocytes Percent Auto 32.1 % (20-40); MANUAL DIFF FLAG NO; Mean Corpuscular HGB Conc 32.3 g/dl (31.0-35.0); Mean Corpuscular Hemoglobin 29.5 pg (27.0-33.0); Mean Corpuscular Volume 91.4 fL (80.0-98.0); Mean Platelet Volume 9.4 fL (9.4-12.3); Monocytes Absolute Auto 0.4 X10*3/uL (0.1-1.2); Neutrophils Absolute Auto 2.7 x10*3/uL (2.0-8.3); Neutrophils Percent Auto 52.8 % (45-73); Platelet Count 242 X10*3/uL (160-400); Red Cell Distribution Width 13.7 % (11.0-16.0); White Blood Count 5.1 X10*3/uL (4.8-10.8)
[2023-12-15 11:00] LABS: Estimated Average Glucose 120 mg/dL; Hemoglobin A1c % 5.8 % (<6.0)
[2023-12-15 11:05] LABS: Appearance Urine Clear; Color Urine Yellow; Glucose Urine UA Negative (Negative); Leukocyte Esterase Urine Negative (Negative); Nitrite Urine Negative (Negative); PH 7.5 (5.0-9.0); Urine Blood Negative (Negative); Urine Ketones Negative (Negative); Urine Protein Negative (Neg-Trace)
[2023-12-15 11:11] LABS: Bacteria Urine None Seen (None Seen); Hyaline Casts Urine 0-2 /LPF (0-2); RBC Urine 0-2 /HPF (0-2); Squamous Epithelial Cell Urine 0-2 /HPF (0-2); WBC Urine 0-5 /HPF (0-5)
[2023-12-15 11:23] LABS: Alanine Aminotransferase 24 U/L (0-31); Albumin Level 4.1 g/dL (3.5-5.0); Alkaline Phosphatase 65 U/L (39-117); Anion Gap 12 (12-20); Aspartate Amino Transferase 26 U/L (5-31); Bilirubin Total 0.5 mg/dL (0.0-1.0); Blood Urea Nitrogen 11 mg/dL (9-16); Carbon Dioxide 26 mmol/L (22-29); Chloride 104 mmol/L (96-108); Estimated Glomerular Filt Rate > 60; Glucose Random 86 mg/dL (60-115); Potassium 4.3 mmol/L (3.3-5.1); Sodium 138 mmol/L (135-145); Total Protein 6.9 g/dL (6.5-8.0)
[2023-12-15 11:45] LABS: Free T4 (Free Thyroxine) 0.98 ng/dL (0.71-1.85)
== END 2023-12-15 09:51 | disposition home or self-care (01) ==
LOC: HO.LAB 09:50
PROVIDERS: PCP Internal Medicine; Visit Provider Internal Medicine
DX: R73.01 Impaired fasting glucose (principal)
CPT/HCPCS: 36415; 80053; 81001; 83036; 84439; 84443; 85025

== ENCOUNTER 2023-12-17 13:13 | Outpatient (AMB) | payer MEDICARE, OTHER, SELFPAY ==
--- NOTE | 2023-12-17 13:14 | A.OFFPC_ITS ---
Vital Signs 12/17/23 13:17 Height 5 ft 4 in Weight 125 lb 2 oz BMI 21.5 BP 130/72 Blood Pressure Location Lt brachial Position Sitting Pulse 60 Pulse Source Pulse Oximeter Pulse Oximetry (%) 97 Oxygen Delivery Method Room Air Intake Visit Reasons: Annual Exam Intake Note: Patient is here today for a physical. 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 per policy Accompanied by: Self / Same As Patient Allergies bee venom protein (honey bee) Allergy (Unknown, Verified 12/17/23 13:16) Hives meperidine [Demerol] Allergy (Unknown, Verified 12/17/23 13:16) vomiting Medication List - Last Reconciled 12/17/23 by Kev Romo MD albuterol sulfate 90 mcg/actuation 1 puff PO Q4H PRN amlodipine 5 mg PO DAILY 90 days atorvastatin 40 mg PO DAILY bupropion HCl SR 100 mg PO DAILY citalopram 10 mg PO DAILY diphenhydramine HCl (Benadryl Allergy) 12.5 mg PO BEDTIME PRN fluticasone propionate 50 mcg/actuation 1 spray intranasal DAILY [MYOcom plus 1.5 tabs PO .QD] omega-3 fatty acids (Fish Oil Concentrate) 1,000 mg PO DAILY turmeric (bulk) 95% (Curcumin) ea miscellaneous Tobacco use date assessed: 12/17/23 Fall risk assessment: No Falls in past year Last assessed Fall Risk: 12/17/23 Dental Screening Dental Screen Date: 12/17/23 Did you have a dental visit in the last 12 months?: Yes Did you have a dental problem in the last 6 months where you did not have access to dental care?: No Was dental information given to patient?: Patient has dentist HPI Annual Exam HPI Details 63-year-old female with a history of hyp ertension hypercholesterolemia GERD asthma impaired glucose tolerance and generalized anxiety disorder last seen in May 2023. Patient's colonoscopy is up-to-date mammogram is due next month bone density has been normal. Patient is here for physical exam. [facility] Medical History Allergic rhinitis Depression History of alcohol abuse History of seizure Insomnia Leukopenia Surgical History Hx of cataract surgery Hx of colonoscopy Family History Father CVD (cardiovascular disease) Myocardial infarction Mother CVD (cardiovascular disease) Myocardial infarction CHF (congestive heart failure) Maternal Grandfather Prostate cancer Brother Myocardial infarction Sister Hypertension Family/Other Depression Social History Housing: House Alcohol intake: former Patient Tobacco Use Status: Former Tobacco user Tobacco use type: Cigarette Years Smoked: quit 1979 e-Cigarette/Vaping Use: Never Used Second Hand Smoke Exposure: Yes service: No Current occupational status: retired Cognitive needs: No Hearing needs: No Vision needs: Yes Questionnaire PHQ-9 Over the last 2 weeks, how often have you been bothered by any of the following problems? 1. Little interest or pleasure in doing things: not at all 2. Feeling down, depressed, or hopeless: not at all 3. Trouble falling or staying asleep, or sleeping too much: not at all 4. Feeling tired or having little energy: not at all 5. Poor appetite or overeating: not at all 6. Feeling bad about yourself - or that you are a failure or have let yourself or your family down: not at all 7. Trouble concentrating on things, such as reading the newspaper or watching television: not at all 8. Moving or speaking so slowly that other people could have noticed. Or the opposite - being so fidgety or restless that you have been moving around a lot more than usual: not at all 9. Thoughts that you would be better off or of hurting yourself in some way: not at all Total score: 0 Depression Screening Interpretation: Negative Depression Screening Done: Yes Source: Developed by Drs. Randolph Clifford, Kianna Monterroso, Vance Varghese and colleagues, with an educational kal from [employer]. Thrive Questionnaire Date Thrive assessed: 12/17/23 I am a: Patient What is your living situation today?: I have a steady place to live Within the past 12 months, did the food you bought not last and you didn't have the money to get more?: Never true Within the past 12 months, did you worry whether your food would run out before you got money to buy more?: Never true Do you have trouble paying for medicines?: No Do you have trouble getting transportation to medical appointments?: No Do you have trouble paying your heating and electricity bill?: No Do you have trouble taking care of your child, family member or friend?: No Do you have trouble with day-to-day activities such as bathing, preparing meals, shopping, managing finances, etc.?: No Are you currently unemployed and looking for a job?: No Are you interested in more education?: No Currently or been in a relationship where the following occur: no concerns reported THRIVE Score: 0 AUDIT C Alcohol Use Questionnaire (AUDIT-C) 1. How often do you have a drink containing alcohol?: Never Total Score: 0 BISHOP-7 AMB Questionnaire BISHOP-7 Date BISHOP - 7 assessed: 12/17/23 Feeling nervous, anxious, or on edge: 0 = Not at all Not being able to stop or control worryin = Not at all Worrying too much about different things: 0 = Not at all Trouble relaxin = Not at all Being so restless that it is hard to sit still: 0 = Not at all Becoming easily annoyed or irritable: 0 = Not at all Feeling afraid as if something awful might happen: 0 = Not at all Total BISHOP-7 score (0-4 normal; 5-9 mild; 10-14 moderate; 15-21 severe): 0 Source: Developed by Drs. Randolph Clifford, Kianna Monterroso, Vance Varghese and colleagues, with an educational kal from [employer]. Review of Systems Const Denies poor appetite and Denies weakness Eyes Denies no additional complaints ENT Reports Normal hearing present, Denies dizziness, Denies nasal congestion, Denies tinnitus and Denies sore throat Card Denies chest pain, Denies syncope, Denies rapid heart rate and Denies dyspnea Resp Denies cough and Denies dyspnea GI Denies change in stool character, Reports constipation, Denies diarrhea, Denies nausea and Denies vomiting Denies urinary frequency, Denies difficulty voiding and Denies dysuria Neuro Reports Normal hearing present, Denies confusion, Denies dizziness, Denies syncope and Denies weakness Psych Denies confusion Physical exam (Primary Care) Vital Signs: Last Vital Signs Pulse 60 12/17/23 13:17 BP 130/72 12/17/23 13:17 Pulse Ox 97 12/17/23 13:17 Oxygen Delivery Method Room Air 12/17/23 13:17 BMI result Body Mass Index 21.5 Tobacco/Smoking Status: Tobacco use Status Tobacco use date assessed 12/17/23 12/17/23 13:23 Patient Tobacco Use Status Former Tobacco user 12/17/23 13:23 Tobacco use type Cigarette 12/17/23 13:23 e-Cigarette/Vaping Use Never Used 12/17/23 13:23 PHQ-9: PHQ-9 Score PHQ-9: Total score 0 12/17/23 13:32 Depression Screening Interpretation: Negative Thrive Assessment: Date of Thrive Assessment Date Thrive assessed 12/17/23 12/17/23 13:23 Currently or been in a relationship where the following occur: no concerns reported Const General: No confusion Orientation/consciousness: No confusion HENMT Head: Yes normocephalic Ears: external ears normal and TM's normal bilaterally Face and sinus: Yes normal facial exam Mouth: moist mucous membranes Throat: Yes tonsils normal Eyes Conjunctivae: conjunctivae normal Pupils: Equal, round and reactive pupils present and Pupil accommodation reflex normal Direct Ophthalmoscopy: normal light reflex Neck Neck: No lymphadenopathy Thyroid: Thyroid normal Chest Chest palpation & inspection: normal inspection of the chest Resp Effort & Inspection: normal respiratory effort and no audible wheezes Auscultation: clear to auscultation bilaterally, no crackles, no wheezes and lung sounds not diminished Cardio Rate: regular rate Rhythm: regular rhythm Peripheral pulses: radial pulses present and dorsalis pedis present GI Palpation (GI): no masses Auscultation: normal bowel sounds and normoactive bowel sounds Rectal Exam - Female: deferred Skin General skin exam: no rashes or lesions noted Rashes: no rashes Neuro General: No confusion Cranial nerves: Yes Equal, round and reactive pupils present and Yes Normal hearing present Cognition (Neuro): normal cognition Gait exam (Neuro): Normal gait present Motor exam (neuro): 5/5 motor strength present throughout Deep tendon reflexes (DTR's): Right brachioradialis reflex intensity grade: 2+, Left brachioradialis reflex intensity grade: 2+, Right patellar reflex intensity grade: 2+ and Left patellar reflex intensity grade: 2+ Extrem General: No edema Immunizations pneumoc 20-milagro conj-dip cr(PF) 0.5 mL IM syringe Performing Provider: Kev Romo MD [place] [facility] Administered by: Rivka White CMA on 12/17/23 13:54 Dose Route Admin Location Dispensed Lot Number Expiration Date NDC 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 Warping [employer] 0.5 mL IM Left Deltoid 0.5 mL [id number] 12/21/24 WYETH/PFIZER VIS Given Date VIS Provided VIS Publication Date 12/17/23 Single Vaccine 21 Eligibility Eligibility Date Funding Source Not [facility] Eligible 12/17/23 Private Assessment and Plan Assessment & Plan (1) Annual physical exam: Code(s): Z00.00 - Encounter for general adult medical examination without abnormal findings (2) HTN (hypertension): Code(s): I10 - Essential (primary) hypertension Qualifiers: Hypertension type: essential hypertension Qualified Code(s): I10 - Essential (primary) hypertension Plan: Continue with blood pressure medication. Decrease salt intake and exercise presently takes amlodipine 5 mg once a day (3) Hyperlipidemia: Code(s): E78.5 - Hyperlipidemia, unspecified Qualifiers: Hyperlipidemia type: pure hypercholesterolemia Qualified Code(s): E78.00 - Pure hypercholesterolemia, unspecified Plan: Avoid fried foods, chicken skin, eggs, butter margarine, pastries and meat. Be it pork or beef they have a lot of cholesterol atorvastatin 40 mg once a day LDL goal of less than 130 and triglyceride of less than 150. (4) GERD (gastroesophageal reflux disease): Code(s): K21.9 - Gastro-esophageal reflux disease without esophagitis Qualifiers: Esophagitis presence: without esophagitis Qualified Code(s): K21.9 - Gastro-esophageal reflux disease without esophagitis Plan: Avoid the foods that causes that usually spicy foods, tomato products, juices, coffee, soda and foods that your sensitive to. After eating do not lie down, allow 3-4 hours before in lie down. And keep the head of bed above 30 degrees to avoid the acid from going up. (5) Impaired fasting blood sugar: Code(s): R73.01 - Impaired fasting glucose Plan: Decrease the amount of carbohydrate intake, pasta, bread, rice and potatoes are all sugar and that is aside from all the sweet stuff, remember that fruits are good but they are Sweet also. (6) Asthma: Code(s): J45.909 - Unspecified asthma, uncomplicated Qualifiers: Asthma severity: mild Asthma persistence: intermittent Asthma complication type: uncomplicated Qualified Code(s): J45.20 - Mild intermittent asthma, uncomplicated Plan: Continue with the inhalers albuterol as needed (7) Generalized anxiety disorder: Comment: Psychiatrist every 3 months Code(s): F41.1 - Generalized anxiety disorder Plan: Continue with counseling and therapy (8) Myalgia: Code(s): M79.10 - Myalgia, unspecified site Orders: Orders Free T4 (Free Thyroxine) 6 Months E78.00 - Pure hypercholesterolemia, unspecified Erythrocyte Sedimentation Rate 6 Months R73.01 - Impaired fasting glucose XR DEXA axial skeleton Today K21.9 - Gastro-esophageal reflux disease without esophagitis, M81.0 - Age-related osteoporosis without current pathological fracture Lipid Panel 6 Months E78.00 - Pure hypercholesterolemia, unspecified Comprehensive Met. Panel 6 Months E78.00 - Pure hypercholesterolemia, unspecified Thyroid Stimulating Hormone 6 Months E78.00 - Pure hypercholesterolemia, unspecified Hemoglobin A1c 6 Months R73.01 - Impaired fasting glucose Complete Blood Count Auto Diff 6 Months R73.01 - Impaired fasting glucose Medications: New celecoxib (Celebrex) 200 mg PO DAILY 90 caps 1RF Refilled atorvastatin 40 mg PO DAILY 90 tabs 2RF E78.5 - Hyperlipidemia, unspecified, I10 - Essential (primary) hypertension, J45.909 - Unspecified asthma, uncomplicated, K21.9 - Gastro-esophageal reflux disease without esophagitis albuterol sulfate 90 mcg/actuation 1 puff PO Q4H PRN 8.5 grams 0RF bronchospasm J45.20 - Mild intermittent asthma, uncomplicated amlodipine 5 mg PO DAILY 90 days 90 tabs 2RF I10 - Essential (primary) hypertension Coding Level of Care Code Est Pt Prev Care >65y(04192) Diagnoses Annual physical exam Z00.00 Essential hypertension I10 Hypertension type: essential hypertension Pure hypercholesterolemia E78.00 Hyperlipidemia type: pure hypercholesterolemia Gastroesophageal reflux disease without esophagitis K21.9 Esophagitis presence: without esophagitis Impaired fasting blood sugar R73.01 Mild intermittent asthma without complication J45.20 Asthma severity: mild Asthma persistence: intermittent Asthma complication type: uncomplicated Generalized anxiety disorder F41.1 Myalgia M79.10
[2023-12-17 13:17] VITALS: BP 130/72; PULSE 60; O2SAT 97; BMI 21.5
== END 2023-12-17 14:01 | disposition home or self-care (01) ==
PROVIDERS: PCP Internal Medicine; Visit Provider Internal Medicine
DX: I10 Essential (primary) hypertension (principal); E78.00 Pure hypercholesterolemia, unspecified; K21.9 Gastro-esophageal reflux disease without esophagitis; Z23 Encounter for immunization; R73.01 Impaired fasting glucose; J45.20 Mild intermittent asthma, uncomplicated; F41.1 Generalized anxiety disorder; M79.10 Myalgia, unspecified site
CPT/HCPCS: 90471; 90677; 99214

== ENCOUNTER 2024-02-02 13:46 | Outpatient (REF) | payer MEDICARE, OTHER, SELFPAY ==
--- NOTE | ~2024-02-02 | MM_ITS ---
EXAMINATION: BONE DENSITOMETRY CLINICAL INDICATION: Age-related osteoporosis without current pathological fracture. COMPARISON: Baseline BD dated 05/09/2019. TECHNIQUE: Using a [employer] DXA System (software version: 13.1) manufactured by [employer], dual-energy x-ray absorptiometry was performed of the lumbar spine and left hip. The images are of good technical quality. Summary results are attached. FINDINGS: LEFT FEMUR, NECK: Current: BMD 1.052 g/cm2, Z-score 1.8, T-score 0.1, normal. Baseline: BMD 0.962 g/cm2. LEFT FEMUR, TOTAL: Current: BMD 1.030 g/cm2, Z-score 1.6, T-score 0.2, normal, 1.1% decrease from baseline (<5% change is not significant). Baseline: BMD 1.041 g/cm2. AP SPINE L1-L4: Current: BMD 1.251 g/cm2, Z-score 2.5, T-score 0.6, normal, 1.7% decrease from baseline (<5% change is not significant). Baseline: BMD 1.273 g/cm2. IDENTIFIED RISK FACTORS: Menopause. HISTORY OF FRACTURE: None listed. MEDICATIONS: Calcium, vitamin D. MM/XR DEXA axial skeleton IMPRESSION: 1. DIAGNOSIS: Normal bone density based on the lowest T-score value of 0.1 in the femoral neck applying World Health Organization criteria. 2. 10-YEAR FRACTURE RISK PREDICTION, FRAX: According to the guidelines, FRAX calculation should only be performed on patients in the osteopenia bone density category. Therefore, FRAX was not performed on this patient.? 3. Treatment Recommendations: NOF guidelines recommend consideration for treatment in postmenopausal women and men age 50 and older presenting with the following: -A hip or vertebral (clinical or morphometric) fracture. -T-score less than or equal to -2.5 at the femoral neck or spine after appropriate evaluation to exclude secondary causes. -Low bone mass at the hip or spine and a 10-year fracture probability by FRAX of greater than or equal to 3% for hip fracture or greater than or equal to 20% for major osteoporotic fracture based on the [place] adapted WHO algorithm. 4. Other Recommendations: All treatment decisions require clinical judgment and consideration of individual patient factors, including patient preferences, comorbidities, previous drug use, risk factors not captured in the FRAX model (e.g. frailty, falls, vitamin D deficiency, increased bone turnover, interval significant decline in bone density) and possible under or overestimation of fracture risk by FRAX. FUTURE SCAN RECOMMENDATION: People with diagnosed cases of osteoporosis or at high risk for fracture should have regular bone mineral density tests. For patients eligible for Medicare, routine testing is allowed once every 2 years. The testing frequency can be increased to one year for patients who have rapidly progressing disease, those who are receiving or discontinuing medical therapy to restore bone mass, or have additional risk factors.
== END 2024-02-02 13:47 | disposition home or self-care (01) ==
LOC: HO.MAMMO 13:46
PROVIDERS: PCP Internal Medicine; Visit Provider Internal Medicine
DX: Z12.31 Encounter for screening mammogram for malignant neoplasm of breast (principal); M81.0 Age-related osteoporosis without current pathological fracture; K21.9 Gastro-esophageal reflux disease without esophagitis
CPT/HCPCS: 77063; 77067; 77080

== ENCOUNTER → 2024-02-02 14:30 | Outpatient (BNV) | payer MEDICARE, OTHER, SELFPAY | PROVIDERS: PCP Internal Medicine; Visit Provider Radiology Diagnostic Radiology | DX: Z12.31 Encounter for screening mammogram for malignant neoplasm of breast (principal) | CPT/HCPCS: 77063; 77067 ==

== ENCOUNTER 2024-02-10 12:53 | Outpatient (AMB) | payer MEDICARE, OTHER, SELFPAY ==
[2024-02-10 12:58] VITALS: BP 120/82; PULSE 60; BMI 20.8
--- NOTE | 2024-02-10 12:58 | MHC.OFFVIS ---
Vital Signs 02/10/24 12:58 Height 5 ft 4 in Weight 121 lb 4.068 oz BMI 20.8 BP 120/82 Blood Pressure Location Lt brachial Position Sitting Pulse 60 Intake Visit Reasons: 1 year f/u Intake Note: 1 year follow-up with ekg c/o increased fatigue Time Clock Inspector Required: No Allergies bee venom protein (honey bee) Allergy (Unknown, Verified 12/17/23 13:16) Hives meperidine [Demerol] Allergy (Unknown, Verified 12/17/23 13:16) vomiting Medication List - Last Reconciled 02/10/24 by Valentín Flores MD albuterol sulfate 90 mcg/actuation 1 puff PO Q4H PRN amlodipine 5 mg PO DAILY 90 days atorvastatin 40 mg PO DAILY bupropion HCl SR 100 mg PO DAILY citalopram 10 mg PO DAILY fluticasone propionate 50 mcg/actuation 1 spray intranasal DAILY omega-3 fatty acids (Fish Oil Concentrate) 1,000 mg PO DAILY turmeric (bulk) 95% (Curcumin) ea miscellaneous HPI Comments Details: Negra comes for follow-up. She has been doing well. She continues to remain highly active. She plays 2-3 hours of pickleball on a regular basis. Has started to run. No exertional symptoms of chest pain or shortness of breath or fatigue. Denies any heart failure symptoms. Takes all her medications. Last LDL 54 mg/dL last May. She is taking all her medications. Her blood pressure remains well controlled. [facility] Medical History History of alcohol abuse Multiple nevi History of seizure Asthma Insomnia Leukopenia Allergic rhinitis Depression GERD (gastroesophageal reflux disease) Hyperlipidemia HTN (hypertension) Elevated coronary artery calcium score Surgical History Hx of cataract surgery Hx of colonoscopy Family History Father CVD (cardiovascular disease) Myocardial infarction Mother CVD (cardiovascular disease) Myocardial infarction CHF (congestive heart failure) Maternal Grandfather Prostate cancer Brother Myocardial infarction Sister Hypertension Family/Other Depression Social History Housing: House Alcohol intake: former Patient Tobacco Use Status: Former Tobacco user Tobacco use type: Cigarette Years Smoked: quit 1979 e-Cigarette/Vaping Use: Never Used Second Hand Smoke Exposure: Yes service: No Current occupational status: retired Cognitive needs: No Hearing needs: No Vision needs: Yes Review of Systems Const Denies chills, Denies fatigue, Denies fever(s), Denies frequent falls, Denies weakness, Denies weight gain and Denies weight loss ENT Denies dizziness Card Denies chest pain, Denies leg edema, Denies lightheadedness, Denies palpitations, Denies dyspnea, Denies dyspnea on exertion, Denies orthopnea and Denies other (loss of consciousness) Resp Denies cough, Denies dyspnea and Denies dyspnea on exertion GI Denies hematochezia and Denies change in stool character Musc Denies abnormal gait, Denies muscle weakness, Denies numbness, Denies radiating pain into limb and Denies tingling Neuro Denies abnormal gait, Denies dizziness, Denies frequent falls, Denies numbness, Denies tingling and Denies weakness Endo Denies fatigue and Denies palpitations Physical Exam Vital Signs: Last Vital Signs Pulse 60 02/10/24 12:58 BP 120/82 02/10/24 12:58 BMI result Body Mass Index 20.8 Const General: cooperative, comfortable, no acute distress, alert, awake and Physically active Nutritional Appearance: thin Orientation/consciousness: patient oriented x3 Limitations: no limitations Neck Neck: Yes trachea midline, Yes supple and Yes no JVD Resp Effort & Inspection: normal respiratory effort Auscultation: clear to auscultation bilaterally Cardio Jugular venous distension: no JVD Palpation: normal PMI Rate: regular rate Rhythm: regular rhythm Heart sounds: S1 normal heart sound present and S2 normal heart sound present Neuro General: patient oriented x3 and no focal motor deficits Extrem General: Yes no clubbing, cyanosis or edema Office Procedures EKG Details: EKG shows normal sinus rhythm with normal EKG [id number], Complete Assessment & Plan Assessment & Plan (1) HTN (hypertension): Code(s): I10 - Essential (primary) hypertension Category: Medical Qualifiers: Hypertension type: essential hypertension Qualified Code(s): I10 - Essential (primary) hypertension Plan: Hypertension which is currently well optimized on current therapy with amlodipine. Advised to continue current therapy. Advise low-salt diet. Advised to monitor blood pressure at home maintain a log. Goal blood pressure less than 130/80. Advised to maintain activity level as tolerated. (2) Elevated coronary artery calcium score: Code(s): R93.1 - Abnormal findings on diagnostic imaging of heart and coronary circulation Category: Medical Plan: Elevated coronary calcium score suggestive of presence of atherosclerosis right coronary distribution. No concerning symptoms at this point time. Continue aggressive lipid modification. LDL is extremely well optimized on high-intensity statin therapy. Advised to call me with any exertional symptoms. Continue to maintain active lifestyle. Advised to call me with new symptoms. Will follow up in the clinic in 1 year's time, sooner p.r.n.. Thank you for allowing me to partake in her care Coding Level of Care Code Est Pt Level 4 (58818) Diagnoses Essential hypertension I10 Hypertension type: essential hypertension Elevated coronary artery calcium score R93.1 CPT Codes EKG - CPT: 22154-[id number], Complete ([id number])
== END 2024-02-10 13:24 | disposition home or self-care (01) ==
PROVIDERS: PCP Internal Medicine; Visit Provider Internal Medicine Cardiovascular Disease
DX: I10 Essential (primary) hypertension (principal); R93.1 Abnormal findings on diagnostic imaging of heart and coronary circulation
CPT/HCPCS: 93010; 99214

== ENCOUNTER → 2024-02-10 12:53 | Outpatient (BNVA) | payer MEDICARE, OTHER, SELFPAY | PROVIDERS: PCP Internal Medicine; Visit Provider Internal Medicine Cardiovascular Disease | DX: R93.1 Abnormal findings on diagnostic imaging of heart and coronary circulation (principal); I10 Essential (primary) hypertension | CPT/HCPCS: 93005; 99212 ==

== ENCOUNTER 2024-06-19 08:43 | Outpatient (REF) | payer MEDICARE, OTHER, SELFPAY ==
[2024-06-19 09:10] LABS: MANUAL DIFF FLAG NO
[2024-06-19 09:21] LABS: Basophils Absolute Auto 0.1 X10*3/uL (0.0-0.2); Basophils Percent Auto 1.7 % (0-2); Eosinophils Absolute Auto 0.2 X10*3/uL (0.0-0.4); Eosinophils Percent Auto 3.2 % (0-4); Hematocrit 41.6 % (37.0-47.0); Hemoglobin 13.5 g/dl (12.0-16.0); Imm Gran Abs Auto 0.01 X10*3/uL (0.00-0.03); Imm Gran Pct Auto 0.2 % (0.0-0.4); Lymphocytes Absolute Auto 1.5 X10*3/uL (1.2-4.9); Mean Corpuscular HGB Conc 32.5 g/dl (31.0-35.0); Mean Corpuscular Hemoglobin 29.9 pg (27.0-33.0); Mean Corpuscular Volume 92.2 fL (80.0-98.0); Monocytes Absolute Auto 0.4 X10*3/uL (0.1-1.2); Monocytes Percent Auto 7.6 % (2-11); Neutrophils Absolute Auto 3.1 x10*3/uL (2.0-8.3); Neutrophils Percent Auto 59.3 % (45-73); Platelet Count 222 X10*3/uL (160-400); Red Blood Count 4.51 X10*6/uL (4.20-5.50); Red Cell Distribution Width 12.6 % (11.0-16.0); White Blood Count 5.3 X10*3/uL (4.8-10.8)
[2024-06-19 09:26] LABS: Estimated Average Glucose 123 mg/dL; Hemoglobin A1C 145.1796 umol/L; Hemoglobin A1c % 5.9 % (<6.0); Total Hemoglobin (HGBA1C) 3519.7568 umol/L
[2024-06-19 09:50] LABS: Alanine Aminotransferase 25 U/L (0-31); Albumin Level 4.3 g/dL (3.5-5.0); Alkaline Phosphatase 71 U/L (39-117); Anion Gap 8 (12-20); Aspartate Amino Transferase 29 U/L (5-31); Bilirubin Total 0.6 mg/dL (0.0-1.0); Blood Urea Nitrogen 12 mg/dL (9-16); Calcium 9.3 mg/dL (8.4-10.2); Carbon Dioxide 30 mmol/L (22-29); Chloride 103 mmol/L (96-108); Cholesterol 147 mg/dL (<200); Estimated Glomerular Filt Rate > 60; Glucose Random 99 mg/dL (60-115); HDL Cholesterol 79 mg/dL (>40); LDL Cholesterol Calculated 61 mg/dL (<100); Potassium 4.3 mmol/L (3.3-5.1); Sodium 137 mmol/L (135-145); Total Protein 6.7 g/dL (6.5-8.0); Triglycerides 38 mg/dL (<150)
[2024-06-19 10:06] LABS: Free T4 (Free Thyroxine) 0.88 ng/dL (0.71-1.85); Thyroid Stimulating Hormone 3.52 uIU/mL (0.32-4.0)
[2024-06-19 10:10] LABS: Erythrocyte Sedimentation Rate 5 MM/HR (0-20)
== END 2024-06-19 08:44 | disposition home or self-care (01) ==
LOC: HO.LAB 08:43
PROVIDERS: PCP Internal Medicine; Visit Provider Internal Medicine
DX: R73.01 Impaired fasting glucose (principal); E78.00 Pure hypercholesterolemia, unspecified
CPT/HCPCS: 36415; 80053; 80061; 83036; 84439; 84443; 85025; 85652

== ENCOUNTER 2024-06-20 13:30 | Outpatient (AMB) | payer MEDICARE, OTHER, SELFPAY ==
[2024-06-20 13:34] VITALS: BP 124/62; PULSE 60; O2SAT 97; BMI 22.3
--- NOTE | 2024-06-20 13:34 | MHC.PC.OV ---
Vital Signs 06/20/24 13:34 Height 5 ft 4 in Weight 130 lb BMI 22.3 BP 124/62 Blood Pressure Location Lt brachial Position Sitting Pulse 60 Pulse Source Pulse Oximeter Pulse Oximetry (%) 97 Oxygen Delivery Method Room Air Intake Visit Reasons: 6 Month Follow Up Formula Checker Required: No Allergies bee venom protein (honey bee) Allergy (Unknown, Verified 06/20/24 13:34) Hives meperidine [Demerol] Allergy (Unknown, Verified 06/20/24 13:34) vomiting Tobacco use date assessed: 12/17/23 Fall risk assessment: No Falls in past year Last assessed Fall Risk: 06/20/24 Dental Screening Dental Screen Date: 12/17/23 HPI 6 Month Follow Up HPI Details 63-year-old female with hypertension hypercholesterolemia GERD impaired glucose tolerance asthma and generalized anxiety disorder last seen in November 2023 for physical patient is here for follow-up. Patient is colonoscopy last done in 2018, up-to-date with mammogram and bone density. Patient has seen Dermatology in May having had cryo therapy on the left forearm. Seborrhea versus AK. Patient has seen Cardiology also blood pressure under control, with the elevated coronary calcium scoring suggestive of atherosclerotic right coronary distribution continuing with aggressive lipid control on statins. Bone density done no significant change from the baseline has normal bone density. Blood work done. FORMERLY [facility], [facility] Medical History History of alcohol abuse Multiple nevi History of seizure Asthma Insomnia Leukopenia Allergic rhinitis Depression GERD (gastroesophageal reflux disease) Hyperlipidemia HTN (hypertension) Elevated coronary artery calcium score Surgical History Hx of cataract surgery Hx of colonoscopy Family History Father CVD (cardiovascular disease) Myocardial infarction Mother CVD (cardiovascular disease) Myocardial infarction CHF (congestive heart failure) Maternal Grandfather Prostate cancer Brother Myocardial infarction Sister Hypertension Family/Other Depression Social History Housing: House Alcohol intake: former Patient Tobacco Use Status: Former Tobacco user Tobacco use type: Cigarette Years Smoked: quit 1979 e-Cigarette/Vaping Use: Never Used Second Hand Smoke Exposure: Yes service: No Current occupational status: retired Cognitive needs: No Hearing needs: No Vision needs: Yes Questionnaire Thrive Questionnaire Date Thrive assessed: 12/17/23 AUDIT C Alcohol Use Questionnaire (AUDIT-C) 1. How often do you have a drink containing alcohol?: Never Total Score: 0 BISHOP-7 AMB Questionnaire BISHOP-7 Date BISHOP - 7 assessed: 12/17/23 Source: Developed by Drs. Randolph Clifford, Kianna Monterroso, Vance Varghese and colleagues, with an educational kal from [employer]. Physical exam (Primary Care) Vital Signs: Last Vital Signs Pulse 60 06/20/24 13:34 BP 124/62 06/20/24 13:34 Pulse Ox 97 06/20/24 13:34 Oxygen Delivery Method Room Air 06/20/24 13:34 BMI result Body Mass Index 22.3 Tobacco/Smoking Status: Tobacco use Status Tobacco use date assessed 12/17/23 06/20/24 13:40 Patient Tobacco Use Status Former Tobacco user 06/20/24 13:40 Tobacco use type Cigarette 06/20/24 13:40 e-Cigarette/Vaping Use Never Used 06/20/24 13:40 Thrive Assessment: Date of Thrive Assessment Date Thrive assessed 12/17/23 06/20/24 13:40 Const General: alert; No acute distress Eyes Conjunctivae: conjunctivae normal Resp Auscultation: clear to auscultation bilaterally Cardio Rate: regular rate Rhythm: regular rhythm GI Inspection: Yes normal to inspection Extrem General: Yes normal to inspection and No edema Coding Level of Care Code Est Pt Level 4 (07518) Diagnoses Elevated coronary artery calcium score R93.1 Essential hypertension I10 Hypertension type: essential hypertension Pure hypercholesterolemia E78.00 Hyperlipidemia type: pure hypercholesterolemia Gastroesophageal reflux disease without esophagitis K21.9 Esophagitis presence: without esophagitis Generalized anxiety disorder F41.1 Impaired fasting blood sugar R73.01 Assessment & Plan Assessment & Plan (1) Elevated coronary artery calcium score: Code(s): R93.1 - Abnormal findings on diagnostic imaging of heart and coronary circulation Category: Medical Plan: Patient has been follow-up with cardiology, blood pressure well optimized cholesterol will optimize with medication. (2) HTN (hypertension): Code(s): I10 - Essential (primary) hypertension Category: Medical Qualifiers: Hypertension type: essential hypertension Qualified Code(s): I10 - Essential (primary) hypertension Plan: Continue with blood pressure medication. Decrease salt intake and exercise takes amlodipine 5 mg once a day (3) Hyperlipidemia: Code(s): E78.5 - Hyperlipidemia, unspecified Category: Medical Qualifiers: Hyperlipidemia type: pure hypercholesterolemia Qualified Code(s): E78.00 - Pure hypercholesterolemia, unspecified Plan: Avoid fried foods, chicken skin, eggs, butter margarine, pastries and meat. Be it pork or beef they have a lot of cholesterol LDL goal of less than 70 and triglyceride of less than 150 on atorvastatin 40 mg once a day (4) GERD (gastroesophageal reflux disease): Code(s): K21.9 - Gastro-esophageal reflux disease without esophagitis Category: Medical Qualifiers: Esophagitis presence: without esophagitis Qualified Code(s): K21.9 - Gastro-esophageal reflux disease without esophagitis Plan: Avoid the foods that causes that usually spicy foods, tomato products, juices, coffee, soda and foods that your sensitive to. After eating do not lie down, allow 3-4 hours before in lie down. And keep the head of bed above 30 degrees to avoid the acid from going up. (5) Generalized anxiety disorder: Comment: Psychiatrist every 3 months Code(s): F41.1 - Generalized anxiety disorder Category: Medical Plan: Continue with counseling and therapy on Wellbutrin on and citalopram (6) Impaired fasting blood sugar: Code(s): R73.01 - Impaired fasting glucose Category: Medical Plan: Decrease the amount of carbohydrate intake, pasta, bread, rice and potatoes are all sugar and that is aside from all the sweet stuff, remember that fruits are good but they are Sweet also. Discussed with the patient that blood work notes increasing hemoglobin A1c. Orders: Orders Influenza [id number] Immunization Today Z23 - Encounter for immunization Medications: New Fluarix Triv [id number] (PF) (flu vacc [id number] 6mos up(PF)) 0.5 mL IM ONCE 0.5 mL 0RF NS Z23 - Encounter for immunization
== END 2024-06-20 13:57 | disposition home or self-care (01) ==
LOC: HO.HMCH 13:31
PROVIDERS: PCP Internal Medicine; Visit Provider Internal Medicine
DX: R93.1 Abnormal findings on diagnostic imaging of heart and coronary circulation (principal); I10 Essential (primary) hypertension; E78.00 Pure hypercholesterolemia, unspecified; K21.9 Gastro-esophageal reflux disease without esophagitis; F41.1 Generalized anxiety disorder; R73.01 Impaired fasting glucose; Z23 Encounter for immunization

== ENCOUNTER → 2024-06-20 13:30 | Outpatient (BNVA) | payer MEDICARE, OTHER, SELFPAY | PROVIDERS: PCP Internal Medicine; Visit Provider Internal Medicine | DX: Z23 Encounter for immunization (principal); R93.1 Abnormal findings on diagnostic imaging of heart and coronary circulation; I10 Essential (primary) hypertension; E78.00 Pure hypercholesterolemia, unspecified; K21.9 Gastro-esophageal reflux disease without esophagitis; F41.1 Generalized anxiety disorder; R73.01 Impaired fasting glucose | CPT/HCPCS: 90471; 90656; 99212 ==

== ENCOUNTER 2024-09-01 11:43 | Outpatient (AMB) | payer MEDICARE, OTHER, SELFPAY ==
--- NOTE | 2024-09-01 11:44 | MHC.PC.OV ---
Intake Visit Reasons: cold symptoms, needs inhaler Intake Note: Patient is here to follow up on cold symptoms. Coughing, fatigue, congestion, fever, chills, running on going for 4-5 days. Steam Room Attendant Required: No Training Program Assistant: Not Required per policy Accompanied by: Self / Same As Patient Allergies bee venom protein (honey bee) Allergy (Unknown, Verified 09/01/24 11:45) Hives meperidine [Demerol] Allergy (Unknown, Verified 09/01/24 11:45) vomiting Medication List - Last Reconciled 09/01/24 by Cydney Mar PA-C albuterol sulfate 90 mcg/actuation 1 puff PO Q4H PRN amlodipine 5 mg PO DAILY 90 days atorvastatin 40 mg PO DAILY bupropion HCl SR 100 mg PO DAILY citalopram 10 mg PO DAILY fluticasone propionate 50 mcg/actuation 1 spray intranasal DAILY omega-3 fatty acids (Fish Oil Concentrate) 1,000 mg PO DAILY turmeric (bulk) 95% (Curcumin) ea miscellaneous Tobacco use date assessed: 09/01/24 Fall risk assessment: No Falls in past year Last assessed Fall Risk: 09/01/24 Dental Screening Dental Screen Date: 09/01/24 Did you have a dental visit in the last 12 months?: Yes Did you have a dental problem in the last 6 months where you did not have access to dental care?: No Was dental information given to patient?: Patient has dentist HPI cold symptoms, needs inhaler HPI Details 63-year-old female with past medical history of hypertension, hypercholesterolemia, GERD, impaired glucose tolerance, asthma and generalized anxiety disorder last seen 05/2024 presenting via telehealth for acute problem. Today she tells us for the last 4 days she has been sick with upper respiratory infection she did test for COVID at home but the test was negative. She was in bed for those 4 days and taking wgpf-[id number] cough and cold remedies with good benefit. She states today her symptoms are much improved and her cough has been subsiding. She feels her symptoms are greatly improved and she has been able to get out of bed and move around today. She still has mild congestion and cough and has been using cough medicine and her albuterol inhaler with good relief. Denies any fevers at this time. She is requesting a refill on her albuterol as she is going away for 3 months and wants to make sure she has this medication. [facility] Medical History History of alcohol abuse Multiple nevi History of seizure Asthma Insomnia Leukopenia Allergic rhinitis Depression GERD (gastroesophageal reflux disease) Hyperlipidemia HTN (hypertension) Elevated coronary artery calcium score Surgical History Hx of cataract surgery Hx of colonoscopy Family History Father CVD (cardiovascular disease) Myocardial infarction Mother CVD (cardiovascular disease) Myocardial infarction CHF (congestive heart failure) Maternal Grandfather Prostate cancer Brother Myocardial infarction Sister Hypertension Family/Other Depression Social History Housing: House Alcohol intake: former Patient Tobacco Use Status: Former Tobacco user Tobacco use type: Cigarette Years Smoked: quit 1979 e-Cigarette/Vaping Use: Never Used Second Hand Smoke Exposure: Yes service: No Current occupational status: retired Cognitive needs: No Hearing needs: No Vision needs: Yes Questionnaire PHQ-9 Over the last 2 weeks, how often have you been bothered by any of the following problems? 1. Little interest or pleasure in doing things: not at all 2. Feeling down, depressed, or hopeless: not at all 3. Trouble falling or staying asleep, or sleeping too much: not at all 4. Feeling tired or having little energy: not at all 5. Poor appetite or overeating: not at all 6. Feeling bad about yourself - or that you are a failure or have let yourself or your family down: not at all 7. Trouble concentrating on things, such as reading the newspaper or watching television: not at all 8. Moving or speaking so slowly that other people could have noticed. Or the opposite - being so fidgety or restless that you have been moving around a lot more than usual: not at all 9. Thoughts that you would be better off or of hurting yourself in some way: not at all Total score: 0 Depression Screening Interpretation: Negative Depression Screening Done: Yes Source: Developed by Drs. Randolph Clifford, Kianna B.W. Vance Monterroso and colleagues, with an educational kal from [employer]. Thrive Questionnaire Date Thrive assessed: 09/01/24 I am a: Patient What is your living situation today?: I have a steady place to live Within the past 12 months, did the food you bought not last and you didn't have the money to get more?: Never true Within the past 12 months, did you worry whether your food would run out before you got money to buy more?: Never true Do you have trouble paying for medicines?: No Do you have trouble getting transportation to medical appointments?: No Do you have trouble paying your heating and electricity bill?: No Do you have trouble taking care of your child, family member or friend?: No Do you have trouble with day-to-day activities such as bathing, preparing meals, shopping, managing finances, etc.?: No Are you currently unemployed and looking for a job?: No Are you interested in more education?: No Please select the resources that you would like help with: None Currently or been in a relationship where the following occur: No concerns reported THRIVE Score: 0 AUDIT C Alcohol Use Questionnaire (AUDIT-C) 1. How often do you have a drink containing alcohol?: Never Total Score: 0 BISHOP-7 AMB Questionnaire BISHOP-7 Date BISHOP - 7 assessed: 09/01/24 Feeling nervous, anxious, or on edge: 0 = Not at all Not being able to stop or control worryin = Not at all Worrying too much about different things: 0 = Not at all Trouble relaxin = Not at all Being so restless that it is hard to sit still: 0 = Not at all Becoming easily annoyed or irritable: 0 = Not at all Feeling afraid as if something awful might happen: 0 = Not at all Total BISHOP-7 score (0-4 normal; 5-9 mild; 10-14 moderate; 15-21 severe): 0 Source: Developed by Drs. Randolph Clifford, Vance Wang and colleagues, with an educational kal from [employer]. Review of Systems Const Denies body aches, Denies chills, Denies fever(s), Denies headache(s) and Denies poor appetite Eyes Reports no additional complaints ENT Denies dizziness, Denies headache(s), Reports nasal congestion and Denies sore throat Card Denies chest pain, Denies lightheadedness and Denies dyspnea Resp Reports cough and Denies dyspnea GI Reports no additional complaints Reports no additional complaints Musc Reports no additional complaints and Denies abnormal gait Skin/Breast Reports system reviewed and no additional complaints, except as documented Neuro Denies abnormal gait, Denies dizziness and Denies headache(s) Psych Reports no additional complaints Physical exam (Primary Care) Vital Signs: Physical exam not performed due to nature of telehealth visit. Tobacco/Smoking Status: Tobacco use Status Tobacco use date assessed 12/17/23 06/20/24 13:40 Patient Tobacco Use Status Former Tobacco user 06/20/24 13:40 Tobacco use type Cigarette 06/20/24 13:40 e-Cigarette/Vaping Use Never Used 06/20/24 13:40 Depression Screening Interpretation: Negative Thrive Assessment: Date of Thrive Assessment Date Thrive assessed 12/17/23 06/20/24 13:40 Currently or been in a relationship where the following occur: No concerns reported Telehealth Telehealth Telehealth Platform: Telephone Location of provider rendering services: practice address Location of patient: address on file Patient Identification confirmed using: Name, : Yes Telehealth method: voice only Patient verbally consented to treatment: Yes Patient verbally consented to billing insurance company: Yes Patient informed of any privacy concerns related to visit: Yes Coding Level of Care Code Tele Est Pt Level 3 (32650) Diagnoses Mild intermittent asthma without complication J45.20 Asthma complication type: uncomplicated Asthma persistence: intermittent Asthma severity: mild Essential hypertension I10 Hypertension type: essential hypertension Cough R05.9 Assessment & Plan Assessment & Plan (1) Asthma: Code(s): J45.909 - Unspecified asthma, uncomplicated Category: Medical Qualifiers: Asthma complication type: uncomplicated Asthma persistence: intermittent Asthma severity: mild Qualified Code(s): J45.20 - Mild intermittent asthma, uncomplicated Plan: Asthma currently controlled on present medications. Continue on albuterol as needed. Avoid triggers such as allergies. (2) HTN (hypertension): Code(s): I10 - Essential (primary) hypertension Category: Medical Qualifiers: Hypertension type: essential hypertension Qualified Code(s): I10 - Essential (primary) hypertension Plan: Continue on current blood pressure medication. Avoid salt intake and encourage healthy diet and regular exercise. Advised patient that if she is going to use hfdb-spz-eamfrfy cough medications to choose a medication that his blood pressure safe such Coricidin (3) Cough: Code(s): R05.9 - Cough, unspecified Category: Medical Plan: Patient complaining of intermittent cough that has been improving over the last several days. She has been using rjbh-cad-jgjopit cough medicine and albuterol inhaler with good relief and states the cough has been subsiding over the last 24 hours. Reviewed with patient red flag symptoms pneumonia and when to present for re-evaluation. Patient understands and agrees with the plan. She will follow up if symptoms worsen or do not improve. Refill for albuterol sent to pharmacy. Plan This note was constructed using voice recognition software. While every effort has been made to ensure accuracy and can coverer, still areas may have been included sometimes these areas may affect the content or meeting of the given symptoms. Total time spent caring for the patient today was 20 minutes. This includes time spent before the visit reviewing the chart, time spent during the visit, and time spent after the visit and documentation. Medications: Refilled albuterol sulfate 90 mcg/actuation 1 puff PO Q4H PRN 8.5 grams 0RF bronchospasm J45.20 - Mild intermittent asthma, uncomplicated
== END 2024-09-01 12:00 | disposition home or self-care (01) ==
LOC: HO.HMCH 11:43
PROVIDERS: PCP Internal Medicine
DX: J45.20 Mild intermittent asthma, uncomplicated (principal); I10 Essential (primary) hypertension; R05.9 Cough, unspecified

== ENCOUNTER 2024-12-19 06:48 | Outpatient (REF) | payer MEDICARE, OTHER, SELFPAY ==
--- OUTSIDE RECORDS SUMMARY | 2024-12-19 06:51 | XMS_ITS | Clinical Summary ---
Author Organization [facility] Address [address] [place] [address] Care Team Providers Care Senior Clinical Project Manager Name Role Phone Unavailable Primary Care Provider Unavailabl e Social History Tobacco Use Types Packs/Day Years Used Date Smoking Tobacco: Never Assessed Comments Unknown Sex and Gender Information Value Date Recorded Sex Assigned at Not on file Legal Sex Female 7:01 PM EST Gender Identity Not on file Sexual Orientation Not on file Plan of Treatment Health Maintenance Due Date Last Done Comments Hepatitis C Virus Screening 1960 DTaP/Tdap/Td Vaccines (1 - Tdap) 1977 Pneumococcal Vaccines 50+ (1 of 1 - PCV) 2008 Zoster (Shingles) Vaccine (1 of 2) 2008 COVID-19 Vaccine ( - 2023-2 5 season) 2024 RSV Vaccine 60 years and old er and Patients (1 - 1-dose 75+ series) 2033 Hepatitis B Vaccines Aged Out No long er eligible based on patient's age to complete this topic
--- OUTSIDE RECORDS SUMMARY | 2024-12-19 06:51 | XMS_ITS | Patient Health Record ---
Author Organization [facility] Address [address] [place] [address] Care Team Providers Care Roller Operator Name Role Phone DemetriusKev Primary Care Provider Unavailabl e Black, Mirian Unavailable [phone] Allergies Allergen (clinical drug ingredient) Drug/Non Drug Allergy documented on EMR Reaction Allergy Type Onset Date Status meperidine Demerol vomiting Drug Allergy Active Reason For Referral No Information Medications Medication SIG (Take, Route, Frequency, Duration) Notes Start Date End Date Status Lisinopril Active Atorvastatin Calcium 40 MG 1 tablet Oral ly Once a day for 30 day(s) Active buPROPion HCl 100 MG 1 tablet Orally Active Fish Oil 1000 MG 1 capsule Orally Onc e a day for 30 day(s) Active flonase 50 mcg/act A ctive Citalopram Hydrobromide 10 MG 1 tablet Orally Once a day for 30 day(s) Active Social History Tobacco Use: Social History Observation Description Date Details (start date - stop date) Former Smoker NA - NA Tobacco Use/Smoking Question Answer Notes Are you a: former smoker Additional Findings: Tobacco Non-User Current no n-smoker Alcohol Screen Question Answer Notes Did you have a drink containing alcohol in the p ast year? No Points 0 Interpretation Negative Tobacco use other than smoking: Question Answer Notes Are you an other tobacco user? No Problems Problem Type SNOMED Code ICD Code Onset Dates Problem Status W/U Status Risk Notes Problem Acquired hallux valgus (21974629) Hallux valgus (acquired), left foot (M20.12) Active confirmed Problem Localized, primary osteoarthritis of the ankle and/or foot (670220510) Primary osteoarthrit is, right ankle and foot (M19.071) Active confirmed Problem Localized, primary osteoarthritis of the ankle and/or foot (627693040) Primary osteoarthrit is, left ankle and foot (M19.072) Active confirmed Problem Acquired hallux valgus (38962084) Hallux valgus (acquired), right foot (M20.11) Active confirmed Problem 706807648 Hammer toe of right foot (M20.41) Active confirmed Problem [id number] Hammer toe of left foot (M20.42) Active confirmed Plan Of Treatment No Information Insurance Providers Payer Name Payer Address Payer Phone Subscriber Number Group Number Insured Name Patient Relationship to Insured Coverage Start Date Coverage End Date [facility] [address] [place] [address] [phone] [id number] Negra Villegas Self - patient is the insured Medical (General) History Medical History History ICD Code Anxiety Arthritis asthma Depression High blood pressure Measles Mumps Chicken pox Surgical History Surgery Date(Month/Year)
--- OUTSIDE RECORDS SUMMARY | 2024-12-19 06:51 | XMS_ITS | Data Portability ---
Author Organization [place] [facility], [facility] Address [address] [facility] [address] [place] [address] Care Team Providers Care Recruiter Specialist Name Role Phone Unavailable Primary Care Provider Unavailabl e Assessment No assessment recorded. Plan of Treatment Reminders Order Date Submit Date Provider Last Modified By Organization Details Last Modified Time Details Appointments None recorded . Lab None recorded . Referral occupati onal therapis t referral [address] [facility] (Inocente Rich), [address] [place], [address], 5 15:40:00 occupati onal therapis t referral 2024 025 robert [facility] PT/[facility] [place] ([facility]), [address], [place], [address], 5 11:47:07 Procedures None recorded . Surgeries None recorded . Imaging XR, hand, 3 or more view 2024 025 [email or web address] Not available 5 12:14:18 XR, hand, 3 or more view 2024 025 [email or web address] Not available 5 12:32:44 XR, hand, 3 or more view 2024 025 [email or web address] Not available 5 12:33:11 XR, hand, 3 or more view 2024 025 [email or web address] Not available 12:29:09 Medication Orders None recorded . Patient TargetsNo targets recorded. Patient Instructions Encounter Date Encounter Id Patient Instructions Last Modified By Organization Details Last Modified Time 09/15/2024 [id number] x-ray reason: pain Imaging orders: True AP, lateral and oblique right hand were ordered, obtained, and interpreted from an orthopaedic standpoint Hand xrays: right Hand 3 view xray show non-displaced fifth metacarpal base fracture with non-displaced small finger proximal phalanx fracture. X-ray impression: Right 5th metacarpal base and small finger proximal phalanx fracture [id number] Not available 09/15/2024 12:40:25 09/22/2024 [id number] x-ray reason: pain Imaging orders: True AP, lateral and oblique right hand were ordered, obtained, and interpreted from an orthopaedic standpoint Hand xrays: right Hand 3 view xray show non-displaced fifth metacarpal base fracture with non-displaced small finger proximal phalanx fracture. X-ray impression: Right 5th metacarpal base and small finger proximal phalanx fracture [id number] Not available 09/22/2024 13:15:18 10/13/2024 [id number] x-ray reason: pain Imaging orders: True AP, lateral and oblique right hand were ordered, obtained, and interpreted from an orthopaedic standpoint Hand xrays: right Hand 3 view xray show non-displaced fifth metacarpal base fracture with non-displaced small finger proximal phalanx fracture. X-ray impression: Healing Right 5th metacarpal base and small finger proximal phalanx fracture Not available 10/13/2024 12:40:39 11/07/2024 [id number] x-ray reason: pain Imaging orders: True AP, lateral and oblique right hand were ordered, obtained, and interpreted from an orthopaedic standpoint Hand xrays: right Hand 3 view xray show non-displaced fifth metacarpal base fracture with non-displaced small finger proximal phalanx fracture. X-ray impression: Healed Right 5th metacarpal base and small finger proximal phalanx fracture [id number] Not available 11/07/2024 12:50:17 Reason for Referral Occupational Therapist Refer ral for Fracture of proximal phalanx of finger left fifth metacarpal base and small finger proximal phalanx fractures 09/09/24 Referring Physician: Laney Doss Physician Director Of Nuclear Medicine, Encounter Date: 10/13/2024 Occupational Therapist Refer ral for Fracture of proximal phalanx of finger left small finger proximal phalanx and fifth metacarpal fracture Referring Physician: Laney Doss Physician Director Of Nuclear Medicine, Encounter Date: 11/07/2024 Problems Name Problem SNOMED Code Status Onset Date Resolution Date Notes Provider Name and Address Organization Details Recorded Time Closed fracture of base of fifth metacarpal bone of left hand [id number] 9109 Active 2024 [place] DOM[place] [address],[place], [address], [facility] - [employer] [facility] 12:42:27 Fracture of proximal phalanx of finger 554242031 Active 2024 [place] DOMING[place] [address],[place], [address], [facility] - [employer] 12:42:28 Problem Notes None recorded. Procedures Surgical History Date Name Laterality Status Provider Name and Address Organization Details Recorded Time FOI CAST SHORT ARM ADULT LT completed [place] DOMINGUEZ [address], [place], [address], [facility] - [employer] [facility] 09/22/2024 13:13:52 FOI CAST WATERPROOF MATERIAL SHORT ARM S47 ($45) completed [place] DOMINGUEZ [address],[place], [address], [facility] - [employer] [facility] 09/22/2024 13:13:57 [facility] SPLINT SHORT ARM ADULT PLASTER LT completed [place] DOMING[place]Z [address],[place], [address], [facility] - [employer] [facility] 09/15/2024 11:34:05 Cataract Surgery completed Shelley [place] - [facility] [facility] 10/13/2024 11:03:11 Imaging Results None recorded. Procedure Notes None recorded. Medical Equipment None Reported. Allergies Allergen ID Allergen Name Allergen Category Reaction Reaction Severity Criticality Documentation Date Start Date Code Code System Note Provider Name and Address Organization Details Recorded Time 536055 Demerol medicatio n Not available Not available Not available 09/14/20242024 58472 1 RxNorm Not Available Not Available Not Available Medications Name Sig Start Date Stop Date Status Note LastModified by Organization Details LastModified Time atorvastatin 40 mg tablet TAKE 1 TABLET BY MOUTH EVERY DAY active Not Available Not Available No t Available hydrocodone 5 mg-acetamino phen 325 mg tablet TAKE 1 TO 2 TABLETS BY MOUTH 3 TIMES A DAY FOR 3 DAYS NEEDED FOR PAIN active Not Available Not Available No t Available ondansetron HCl 4 mg tablet TAKE 1 TABLET BY MOUTH EVERY 8 HOURS NEEDED FOR NAUSEA AND VOMITING active Not Available Not Available No t Available amlodipine 5 mg tablet TAKE 1 TABLET BY MOUTH EVERY DAY active Not Available Not Available No t Available albuterol sulfate HFA 90 mcg/actuatio n aerosol inhaler INHALE 1 PUFF BY MOUTH EVERY 4 HOURS NEEDED FOR BRONCHOSPAS M active Not Available Not Available No t Available Vitals None Recorded Social History Question Answer Notes LastModified by Organizat ion Details LastModified Time Tobacco Smoking Status Former Smoker Not Available 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 Yes [email or web address] Information n ot available 09/15/2024 What Is Your Level Of Alcohol Consumption? None [email or web address] Information not available 09/15/2024 Are You Currently Employed? No [email or web address] Information not available 09/15/2024 What Is The Highest Grade Or Level Of School You Have Completed Or The Highest Degree You Have Received? TN14093-1 [email or web address] Information not available 09/15/2024 What Is Your Occupation? Retired [email or web address] Information not available 09/15/2024 Are You Currently Taking Prescription Pain Medications? No [email or web address] Information not available 09/15/2024 Are You Currently Being Seen For Pain Management? No [email or web address] Information not available 09/15/2024 I Have Received Hospice Services This Year Or Am Currently Receiving Hospice Care No [email or web address] Information not available 09/15/2024 I Have Designated A Power Of Coroner'S Juror/Surrogate Decision Maker. If Yes, Who Is This? Yael Joiner [email or web address] Information no t available 09/15/2024 Have You Taken Any Oral Or Topical Medications For This Problem? No [email or web address] Information not available 09/15/2024 Have You Used Ice Or Heat For This Problem? Yes [email or web address] Information not available 09/15/2024 If You Have Used Ice Or Heat For This Problem, Please Specify The Length Of Time: Daily, Since The Injury [email or web address] Information not available 09/15/2024 Have You Had Any Physical Therapy Or Home Exercise For This Problem? If Yes, Please Explain: No [email or web address] Information not available 09/15/2024 Have You Had An Injection? If Yes, Has It Been More Than 3 Months Since Your Last Injection? No [email or web address] Information not available 09/15/2024 Have You Used Any Assistive Devices(knee Sleeve, Morgan Bandage, Brace, Etc.) For This Problem? Yes,administe red In ER Wednesday [email or web address] Information not available 09/15/2024 Are You Experiencing Any Difficulty In Performing Daily Activities To Include Weight Bearing? If Yes, Please Explain: No [email or web address] Information not available 09/15/2024 Are You Participating In Any Weight Loss Or Exercise Programs Pertaining To This Problem? If Yes, Please Explain: No [email or web address] Information not available 09/15/2024 Is This An Auto Related Injury? No [email or web address] Information not available 09/15/2024 Is This A Work Related Injury? No [email or web address] Information not available 09/15/2024 How Much Tobacco Do You Smoke? No [email or web address] Information not available 09/15/2024 How Many Years Have You Smoked Tobacco? 2 [email or web address] Information not available 09/15/2024 Sex: Unknown Functional Status None recorded. Mental Status None recorded. Family History Nothing Reported. Medical History Condition Response Anxiety/Depression Y Asthma/Lung Disease Y Arthritis Y Hypertension Y Gynecological HistoryNo gynecological history recorded. Obstetrics History GPAL:G 0 P 0 0 0 0 Past Encounters Encounter ID Performer Location Encounter Start Date Encounter Closed Date Diagnosis/Indication Diagnosis SNOMED-CT Code Diagnosis ICD10 Code Diagnosis Note [id number] [place] DOMINGUEZ [facility] [address] [place] [address] 09/15/2024 10:52:07 09/15/2024 12:02:46 Pain of left hand [id number] 41770 M79.642 Fracture o f proximal phalanx of finger 799767283 S62.647D left small finger proximal phalanx fractureth e fracture appears to be no displaced on today's x-ray. She should do fine with immobiliza tion. She continues to have quite a bit of swelling and therefore I recommend going into a splint today a well-padde d forearm based ulnar gutter splint was applied. She will follow up in 1 week for repeat x-rays and likely transition into a cast. Closed fra cture of base of fifth metacarpal bone of left hand [id number] S62.347A left fifth metacarpal base fractureth e fracture appears to be no displaced on today's x-ray. She should do fine with immobiliza tion. She continues to have quite a bit of swelling and therefore I recommend going into a splint today a well-padde d forearm based ulnar gutter splint was applied. She will follow up in 1 week for repeat x-rays and likely transition into a cast. [id number] [place] DOMINGUEZ [facility] [address] [place] [address] 09/22/2024 09:59:50 09/22/2024 10:49:38 Closed fracture of base of fifth metacarpal bone of left hand [id number] 0346964 S62.347A left fifth metacarpal base fractureth e fracture appears to be non displaced on today's x-ray. She should do fine with immobiliza tion. she was placed in a short arm ulnar guttercast . She will follow-up in 3 weeks for repeat x-rays out of the cast will likely transition her to a brace and sonya taping. Fracture o f proximal phalanx of finger [id number] S62.647D left small finger proximal phalanx fractureth e fracture appears to be no displaced on today's x-ray. She should do fine with immobiliza tion. She should do fine with immobiliza tion. she was placed in a short arm ulnar guttercast . She will follow-up in 3 weeks for repeat x-rays out of the cast will likely transition her to a brace and sonya taping. [id number] [place] DOMINGUEZ [facility] [address] [place] [address] 10/13/2024 11:01:43 10/13/2024 12:10:34 Closed fracture of base of fifth metacarpal bone of left hand [id number] 8203552 S62.347A left fifth metacarpal base fractureth e fracture appears to be non displaced on today's x-ray. she was transition ed into a removable wrist brace and she will start some gentle mobility. We will also have her get her started in therapy at this time. She will continue the brace for 2 more weeks. She will follow up in 3-4 weeks for repeat x-rays Fracture o f proximal phalanx of finger 755000670 S62.647D left small finger proximal phalanx fracturesh e was transition ed into sonya taping the ring and small fingers. She will continue to do this for at least the next 2 weeks. We will get her into formal therapy for range of motion at this time. She will follow-up in 3-4 weeks for repeat x-rays. Pain of left hand 369266 [id number] 88941 M79.907 [id number] [place] DOMINGUEZ [facility] [address] [place] [address] 11/07/2024 08:33:20 11/07/2024 09:02:19 Closed fracture of base of fifth metacarpal bone of left hand [id number] 2121423 S62.347A left fifth metacarpal base fractureth e fracture appears to be non displaced on today's x-ray.X-ra ys showed healed fractures. She is nontender. She will discontinu e the brace at this point. She will continue working on a home exercise program as well as physical therapy Fracture o f proximal phalanx of finger [id number] S62.647D left small finger proximal phalanx fracturesh e was transition ed into sonya taping the ring and small fingers with activity. She currently has no restrictio n she will work on advancing activity as tolerated x-rays show a healed fracture. If she continues to have stiffness she will start back with therapy in [facility]. Health Concerns Section Related Observation LastModified by Organization Detai ls LastModified Time None Recorded Concern Status LastModified by Organization Details LastModified Time None Recorded Advance Directives Directive Y: Payers Encounter Date Sequence Insurance Name Policy Number Policy Velasco Covered Member ID Velasco Member ID Guarantor Name 09/15/2024 1 [place] Negra H Villegas [id number] Negra Villegas 09/15/2024 2 WPS - FOR LIFE (MEDICARE SUPPLEMENT) Negra Villegas [id number] Negra Villegas 09/22/2024 1 [place] Negra H Villegas [id number] Negra Villegas 09/22/2024 2 WPS - FOR LIFE (MEDICARE SUPPLEMENT) Negra Villegas [id number] Negra Villegas 10/13/2024 1 [place] Negra H Villegas [id number] Negra Villegas 10/13/2024 2 WPS - FOR LIFE (MEDICARE SUPPLEMENT) Negra Villegas [id number] Negra Villegas 11/07/2024 2 WPS - FOR LIFE (MEDICARE SUPPLEMENT) Negra Villegas [id number] Negra Villegas Notes Date Note Type Note Provider Name and Address Organization Details Recorded Time 09/15/2024 text/html chief complaint: L small finger fxPt states that 1 week ago she fell while playing pickle ball. Pt states that she went to the ER that same night, and was not reduced. [place] DOMINGUEZ [address], [place], [address], [facility] - [facility] [facility] 09/15/2024 12:44:14 09/22/2024 text/html chief complaint: left small finger proximal phalanx fractureL ulnar gutter splint 09/15/2024Pt states that she is doing well. [place] DOMINGUEZ [address], [place], [address], [facility] - [employer] 09/22/2024 13:15:53 10/13/2024 text/html chief complaint: left fifth metacarpal base fracture and left small finger proximal phalanx fracturePt states that she is doing well. [place] DOMINGUEZ [address], [place], [address], [facility] - [employer] [facility] 10/13/2024 12:41:01 11/07/2024 text/html Chief complaint: left fifth metacarpal base fractureleft small finger proximal phalanx fracturept states that she is doing well and making progress. [place] DOMINGUEZ [address], [place], [address], [facility] - [employer] [facility] 11/07/2024 12:50:50 OBGyn Episode No OBEpisode recorded.
[2024-12-19 06:57] LABS: MANUAL DIFF FLAG NO
[2024-12-19 07:20] LABS: Basophils Absolute Auto 0.1 X10*3/uL (0.0-0.2); Basophils Percent Auto 1.6 % (0-2); Eosinophils Absolute Auto 0.3 X10*3/uL (0.0-0.4); Eosinophils Percent Auto 4.7 % (0-4); Hematocrit 36.8 % (37.0-47.0); Imm Gran Abs Auto 0.03 X10*3/uL (0.00-0.03); Imm Gran Pct Auto 0.4 % (0.0-0.4); Lymphocytes Absolute Auto 1.6 X10*3/uL (1.2-4.9); Lymphocytes Percent Auto 23.6 % (20-40); Mean Corpuscular HGB Conc 32.6 g/dl (31.0-35.0); Mean Corpuscular Hemoglobin 28.4 pg (27.0-33.0); Mean Platelet Volume 9.2 fL (9.4-12.3); Monocytes Absolute Auto 0.6 X10*3/uL (0.1-1.2); Monocytes Percent Auto 8.2 % (2-11); Neutrophils Absolute Auto 4.1 x10*3/uL (2.0-8.3); Neutrophils Percent Auto 61.5 % (45-73); Platelet Count 296 X10*3/uL (160-400); Red Blood Count 4.23 X10*6/uL (4.20-5.50); Red Cell Distribution Width 14.3 % (11.0-16.0); White Blood Count 6.7 X10*3/uL (4.8-10.8)
[2024-12-19 07:27] LABS: Estimated Average Glucose 120 mg/dL; Hemoglobin A1c % 5.8 % (<6.0); Total Hemoglobin (HGBA1C) 3096.4314 umol/L
[2024-12-19 07:58] LABS: Alanine Aminotransferase 13 U/L (0-31); Albumin Level 3.8 g/dL (3.5-5.0); Alkaline Phosphatase 74 U/L (39-117); Anion Gap 11 (12-20); Aspartate Amino Transferase 25 U/L (5-31); Bilirubin Total 0.4 mg/dL (0.0-1.0); Blood Urea Nitrogen 11 mg/dL (9-16); Calcium 8.7 mg/dL (8.4-10.2); Carbon Dioxide 26 mmol/L (22-29); Chloride 103 mmol/L (96-108); Cholesterol 123 mg/dL (<200); Estimated Glomerular Filt Rate > 60; Glucose Random 97 mg/dL (60-115); HDL Cholesterol 62 mg/dL (>40); LDL Cholesterol Calculated 54 mg/dL (<100); Potassium 4.4 mmol/L (3.3-5.1); Sodium 136 mmol/L (135-145); Triglycerides 36 mg/dL (<150)
[2024-12-19 08:16] LABS: Free T4 (Free Thyroxine) 0.99 ng/dL (0.71-1.85); Thyroid Stimulating Hormone 3.83 uIU/mL (0.32-4.0); Vitamin D 25-OH Total 56.3 ng/mL (>30)
[2024-12-19 08:22] LABS: Folate 9.2 ng/mL (> or = 4.0); Vitamin B12 768 pg/mL (200-900)
== END 2024-12-19 06:49 | disposition home or self-care (01) ==
LOC: HO.LAB 06:48
PROVIDERS: PCP Internal Medicine; Visit Provider Internal Medicine
DX: Z00.00 Encounter for general adult medical examination without abnormal findings (principal); I10 Essential (primary) hypertension; E78.00 Pure hypercholesterolemia, unspecified; R93.1 Abnormal findings on diagnostic imaging of heart and coronary circulation; K21.9 Gastro-esophageal reflux disease without esophagitis; J45.20 Mild intermittent asthma, uncomplicated; R73.01 Impaired fasting glucose; F41.1 Generalized anxiety disorder; D12.6 Benign neoplasm of colon, unspecified; S62.609D Fracture of unspecified phalanx of unspecified finger, subsequent encounter for fracture with routine healing; R92.2 Inconclusive mammogram
CPT/HCPCS: 36415; 80053; 80061; 82306; 82607; 82746; 83036; 84439; 84443; 85025; 96127; 99397

== ENCOUNTER 2024-12-19 13:48 | Outpatient (AMB) | payer MEDICARE, OTHER, SELFPAY ==
[2024-12-19 13:51] VITALS: BP 110/64; PULSE 68; O2SAT 97; BMI 21.6
--- NOTE | 2024-12-19 13:51 | A.OFFPC_ITS ---
Vital Signs 12/19/24 13:51 Height 5 ft 4 in Weight 126 lb 2 oz BMI 21.6 BP 110/64 Blood Pressure Location Lt brachial Position Sitting Pulse 68 Pulse Source Pulse Oximeter Pulse Oximetry (%) 97 Oxygen Delivery Method Room Air Intake Visit Reasons: annual exam Porcelain Slusher Required: No Accompanied by: Self / Same As Patient Allergies bee venom protein (honey bee) Allergy (Unknown, Verified 12/19/24 13:52) Hives meperidine [Demerol] Allergy (Unknown, Verified 12/19/24 13:52) vomiting Medication List - Last Reconciled 12/19/24 by Kev Romo MD albuterol sulfate 90 mcg/actuation 1 puff PO Q4H PRN amlodipine 5 mg PO DAILY 90 days atorvastatin 40 mg PO DAILY bupropion HCl SR 100 mg PO DAILY citalopram 10 mg PO DAILY fluticasone propionate 50 mcg/actuation 1 spray intranasal DAILY ibuprofen 400 mg PO BID omega-3 fatty acids (Fish Oil Concentrate) 1,000 mg PO DAILY turmeric (bulk) 95% (Curcumin) ea miscellaneous Tobacco use date assessed: 12/19/24 Fall risk assessment: 1 Fall in past year Last assessed Fall Risk: 12/19/24 Dental Screening Dental Screen Date: 12/19/24 Did you have a dental visit in the last 12 months?: Yes Did you have a dental problem in the last 6 months where you did not have access to dental care?: No Was dental information given to patient?: Patient has dentist [facility] Medical History (Updated 12/19/24 @ 14:26 by Kev Romo MD) History of alcohol abuse Multiple nevi History of seizure Asthma Insomnia Leukopenia Allergic rhinitis Depression GERD (gastroesophageal reflux disease) Hyperlipidemia HTN (hypertension) Elevated coronary artery calcium score Surgical History Hx of cataract surgery Hx of colonoscopy Family History Father CVD (cardiovascular disease) Myocardial infarction Mother CVD (cardiovascular disease) Myocardial infarction CHF (congestive heart failure) Maternal Grandfather Prostate cancer Brother Myocardial infarction Sister Hypertension Family/Other Depression Social History Housing: House Alcohol intake: former Patient Tobacco Use Status: Former Tobacco user Tobacco use type: Cigarette Years Smoked: quit 1979 e-Cigarette/Vaping Use: Never Used Second Hand Smoke Exposure: Yes service: No Current occupational status: retired Cognitive needs: No Hearing needs: No Vision needs: Yes Questionnaire PHQ-9 Over the last 2 weeks, how often have you been bothered by any of the following problems? 1. Little interest or pleasure in doing things: not at all 2. Feeling down, depressed, or hopeless: not at all 3. Trouble falling or staying asleep, or sleeping too much: not at all 4. Feeling tired or having little energy: not at all 5. Poor appetite or overeating: not at all 6. Feeling bad about yourself - or that you are a failure or have let yourself or your family down: not at all 7. Trouble concentrating on things, such as reading the newspaper or watching television: not at all 8. Moving or speaking so slowly that other people could have noticed. Or the opposite - being so fidgety or restless that you have been moving around a lot more than usual: not at all 9. Thoughts that you would be better off or of hurting yourself in some way: not at all Total score: 0 Source: Developed by Drs. Randolph Clifford, Kianna Monterroso, Vance Varghese and colleagues, with an educational kal from [employer]. Thrive Questionnaire Date Thrive assessed: 12/19/24 I am a: Patient What is your living situation today?: I have a steady place to live Within the past 12 months, did the food you bought not last and you didn't have the money to get more?: Never true Within the past 12 months, did you worry whether your food would run out before you got money to buy more?: Never true Do you have trouble paying for medicines?: No Do you have trouble getting transportation to medical appointments?: No Do you have trouble paying your heating and electricity bill?: No Do you have trouble taking care of your child, family member or friend?: No Do you have trouble with day-to-day activities such as bathing, preparing meals, shopping, managing finances, etc.?: No Are you currently unemployed and looking for a job?: No Are you interested in more education?: Yes Please select the resources that you would like help with: None Currently or been in a relationship where the following occur: No concerns reported THRIVE Score: 0 AUDIT C Alcohol Use Questionnaire (AUDIT-C) 1. How often do you have a drink containing alcohol?: Never 3. How often do you have six or more drinks on one occasion?: Never Total Score: 0 BISHOP-7 AMB Questionnaire BISHOP-7 Date BISHOP - 7 assessed: 12/19/24 Feeling nervous, anxious, or on edge: 0 = Not at all Not being able to stop or control worryin = Not at all Worrying too much about different things: 0 = Not at all Trouble relaxin = Not at all Being so restless that it is hard to sit still: 0 = Not at all Becoming easily annoyed or irritable: 0 = Not at all Feeling afraid as if something awful might happen: 0 = Not at all Total BISHOP-7 score (0-4 normal; 5-9 mild; 10-14 moderate; 15-21 severe): 0 Source: Developed by Drs. Randolph Clifford, Kianna Monterroso, Vance Varghese and colleagues, with an educational kal from [employer]. Review of Systems Const Denies poor appetite and Denies weakness Eyes Denies no additional complaints ENT Reports Normal hearing present, Denies dizziness, Denies nasal congestion, Denies tinnitus and Denies sore throat Card Denies chest pain, Denies syncope, Denies rapid heart rate and Denies dyspnea Resp Denies cough and Denies dyspnea GI Denies change in stool character, Reports constipation, Denies diarrhea, Denies nausea and Denies vomiting Denies urinary frequency, Denies difficulty voiding and Denies dysuria Neuro Reports Normal hearing present, Denies confusion, Denies dizziness, Denies syncope and Denies weakness Psych Denies confusion Physical exam (Primary Care) Vital Signs: Last Vital Signs Pulse 68 12/19/24 13:51 BP 110/64 12/19/24 13:51 Pulse Ox 97 12/19/24 13:51 Oxygen Delivery Method Room Air 12/19/24 13:51 BMI result Body Mass Index 21.6 Tobacco/Smoking Status: Tobacco use Status Tobacco use date assessed 12/19/24 12/19/24 13:58 Patient Tobacco Use Status Former Tobacco user 12/19/24 13:58 Tobacco use type Cigarette 12/19/24 13:58 e-Cigarette/Vaping Use Never Used 12/19/24 13:58 PHQ-9: PHQ-9 Score PHQ-9: Total score 0 12/19/24 14:00 Thrive Assessment: Date of Thrive Assessment Date Thrive assessed 12/19/24 12/19/24 13:58 Currently or been in a relationship where the following occur: No concerns reported Const General: No confusion Orientation/consciousness: No confusion HENMT Head: Yes normocephalic Ears: external ears normal and TM's normal bilaterally Face and sinus: Yes normal facial exam Mouth: moist mucous membranes Throat: Yes tonsils normal Eyes Conjunctivae: conjunctivae normal Pupils: Equal, round and reactive pupils present and Pupil accommodation reflex normal Direct Ophthalmoscopy: normal light reflex Neck Neck: No lymphadenopathy Thyroid: Thyroid normal Chest Chest palpation & inspection: normal inspection of the chest Resp Effort & Inspection: normal respiratory effort and no audible wheezes Auscultation: clear to auscultation bilaterally, no crackles, no wheezes and lung sounds not diminished Cardio Rate: regular rate Rhythm: regular rhythm Peripheral pulses: radial pulses present and dorsalis pedis present GI Palpation (GI): no masses Auscultation: normal bowel sounds and normoactive bowel sounds Rectal Exam - Female: deferred Skin General skin exam: no rashes or lesions noted Rashes: no rashes Neuro General: No confusion Cranial nerves: Yes Equal, round and reactive pupils present and Yes Normal he aring present Cognition (Neuro): normal cognition Gait exam (Neuro): Normal gait present Motor exam (neuro): 5/5 motor strength present throughout Deep tendon reflexes (DTR's): Right brachioradialis reflex intensity grade: 2+, Left brachioradialis reflex intensity grade: 2+, Right patellar reflex intensity grade: 2+ and Left patellar reflex intensity grade: 2+ Extrem General: No edema Coding Level of Care Code Est Pt Prev Care >65y(38712) Diagnoses Annual physical exam Z00.00 Essential hypertension I10 Hypertension type: essential hypertension Pure hypercholesterolemia E78.00 Hyperlipidemia type: pure hypercholesterolemia Elevated coronary artery calcium score R93.1 Gastroesophageal reflux disease without esophagitis K21.9 Esophagitis presence: without esophagitis Mild intermittent asthma without complication J45.20 Asthma complication type: uncomplicated Asthma persistence: intermittent Asthma severity: mild Impaired fasting blood sugar R73.01 Generalized anxiety disorder F41.1 Tubular adenoma of colon D12.6 Finger fracture, left S62.483Y Assessment & Plan Assessment & Plan (1) Annual physical exam: Code(s): Z00.00 - Encounter for general adult medical examination without abnormal findings Category: Medical Plan: Patient is advised to eat healthy, keep well hydrated, keep active and have adequate sleep. (2) HTN (hypertension): Code(s): I10 - Essential (primary) hypertension Category: Medical Qualifiers: Hypertension type: essential hypertension Qualified Code(s): I10 - Essential (primary) hypertension Plan: Continue with blood pressure medication. Decrease salt intake and exercise on amlodipine 5 mg once a day (3) Hyperlipidemia: Code(s): E78.5 - Hyperlipidemia, unspecified Category: Medical Qualifiers: Hyperlipidemia type: pure hypercholesterolemia Qualified Code(s): E78.00 - Pure hypercholesterolemia, unspecified Plan: Avoid fried foods, chicken skin, eggs, butter margarine, pastries and meat. Be it pork or beef they have a lot of cholesterol LDL goal of less than 70 and triglyceride of less than 150 on atorvastatin 40 mg once (4) Elevated coronary artery calcium score: Code(s): R93.1 - Abnormal findings on diagnostic imaging of heart and coronary circulation Category: Medical Plan: Discussed the need to get cholesterol under control blood pressure under control. (5) GERD (gastroesophageal reflux disease): Code(s): K21.9 - Gastro-esophageal reflux disease without esophagitis Category: Medical Qualifiers: Esophagitis presence: without esophagitis Qualified Code(s): K21.9 - Gastro-esophageal reflux disease without esophagitis Plan: Avoid the foods that causes that usually spicy foods, tomato products, juices, coffee, soda and foods that your sensitive to. After eating do not lie down, allow 3-4 hours before in lie down. And keep the head of bed above 30 degrees to avoid the acid from going up. On albuterol inhaler as needed (6) Asthma: Code(s): J45.909 - Unspecified asthma, uncomplicated Category: Medical Qualifiers: Asthma complication type: uncomplicated Asthma persistence: intermittent Asthma severity: mild Qualified Code(s): J45.20 - Mild intermittent asthma, uncomplicated Plan: Albuterol inhaler as needed (7) Impaired fasting blood sugar: Code(s): R73.01 - Impaired fasting glucose Category: Medical Plan: Decrease the amount of carbohydrate intake, pasta, bread, rice and potatoes are all sugar and that is aside from all the sweet stuff, remember that fruits are good but they are Sweet also. (8) Generalized anxiety disorder: Comment: Psychiatrist every 3 months Code(s): F41.1 - Generalized anxiety disorder Category: Medical Plan: Continue with Bue per prior on 100 mg once a day (9) Tubular adenoma of colon: Code(s): D12.6 - Benign neoplasm of colon, unspecified Category: Medical (10) Finger fracture, left: Comment: 08/2024 fall had a cast Code(s): S62.609A - Fracture of unspecified phalanx of unspecified finger, initial encounter for closed fracture Category: Medical Plan History of Present Illness The patient is a 64-year-old female presenting for follow-up care regarding her chronic medical conditions. She manages essential hypertension with amlodipine and hypercholesterolemia with atorvastatin. 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 Additional chronic health concerns include gastroesophageal reflux disease and asthma, controlled with albuterol. She reports long-standing generalized anxiety disorder and finds occasional relief with bupropion intake. There is a further history of Demerol allergy, presenting with nausea and vomiting. The patient experiences osteoarthritis- related aches, though heightened concern surrounds left-hand stiffness following a fall-induced fracture earlier this year. Hand injuries were partially addressed with PT initiated in [place], with follow-up orthopedic referral pending for further management. The patient also encounters intermittent tinnitus and low back stiffness, regularly visiting a chiropractor to alleviate discomfort. To manage sleeplessness, she commonly takes Benadryl, expressing worry over sustained use effects. Overall, the patient maintains lifestyle practices conducive to disease management, adhering to periodical diagnostic evaluations and regimen reviews. Health Maintenance - Recent blood work with good control of cholesterol and blood glucose levels - Coronary artery calcium score monitoring for cardiovascular risk reduction - Discussed dietary changes to reduce inflammatory foods and encourage a less bloating effect - Continued medical management for hypertension and cholesterol - Referral for mammography ultrasound for breast density observation - Evaluation of immunization status; tetanus vaccine and shingles vaccine discussed - Encouraged the use of Voltaren gel as an alternative to oral NSAIDs for arthritis - Encouraged regular physical activity and nutritional dietary adjustments - Advised to manage nocturnal sleep disruptions through non-pharmacological approaches if possible Social History - Denies the use of alcohol and tobacco - Engages periodically in physical activity though could intensify lifestyle adjustments - Indicates familial continuity, discussing family living adjustments regarding mother's rest patterns - Dietary initiatives discussed for health maintenance Review of Systems - General: Denies significant weight changes - HEENT: Reports tinnitus; denies visual changes and hearing loss - Cardiovascular: Denies chest pain or palpitations - Respiratory: Denies shortness of breath; acknowledges reflux control - Gastrointestinal: Reports gas and bloating - Genitourinary: No dysuria or urinary frequency reported - Musculoskeletal: Reports low back pain and left-hand stiffness post-fracture - Neurological: Denies headaches or neurological deficits - Psychiatric: Reports anxiety and sleep disturbances managed with Benadryl Physical Exam General: Cooperative, healthy appearing, comfortable, no acute distress and well developed Orientation: Patient oriented x3 Limitations: No limitations Head: Normal to inspection Ears: Hearing grossly normal bilaterally, but reports little tinnitus Nose: Normal external nose present Face and sinus: Normal facial exam Eyes: Appearance normal, both eyes and all related structures Neck: Normal visual inspection and Yes full ROM Respiratory: Normal respiratory effort and able to speak in complete sentences. Clear to auscultation bilaterally Cardiovascular: Regular rate and rhythm. Normal S1 and S2 GI: Normal to inspection. Soft to palpation and nontender Skin: No rashes or lesions noted Neuro: Patient oriented x3 Extremities: Normal to inspection, but reports stiffness and lack of full range of motion in left hand due to previous fracture Results - Labs: Normal renal function, improved hemoglobin A1c at 5.8 - Cholesterol: LDL maintained below goal with a reading of 54 - CBC and electrolytes within normal range - Imaging: Suggestion for mammogram ultrasound due to breast density Plan The patient will continue using amlodipine for hypertension and atorvastatin for hypercholesterolemia, with current labs affirming the efficacy of these treatments. Lifestyle alterations, particularly in dietary habits, are encouraged to mitigate gastrointestinal symptoms and promote overall well-being. Use Voltaren gel as a preferred anti-inflammatory pain relief method. An orthopedic consultation is advised for residual left-hand stiffness, while an ultrasound mammogram is scheduled for further breast density evaluation. Restorative sleep practices should prioritize non-pharmacological methods. Vaccination updates for tetanus and shingles are considered valuable and contingent upon pharmacy availability and coverage. Existing health maintenance strategies should incorporate consistent physical activity and nutritional adjustments for sustainable disease management. Patient was informed and verbally consented to the use of an ambient scribe for clinic note documentation during this visit. Discussion Notes I discussed the current chronic conditions with the patient, focusing on maintaining blood pressure and cholesterol through ongoing use of amlodipine and atorvastatin. We addressed the side effects and risks of long-term NSAID use, specifically related to kidney health, and suggested a switch towards topic- based pain relief solutions. A referral to orthopedics was agreed for additional management of the patient's hand stiffness, accompanied by suggested PT. Routine screening through a focused mammogram ultrasound was advised owing to breast density concerns. Conversations also covered potential Benadryl reliance for sleep and encouraged evaluation of non-medicinal options. Immunization updates for tetanus and shingles were discussed, with the patient encouraged to consult the pharmacy for administration. Future follow-ups will monitor compliance and effectiveness of current therapeutic strategies and ensure any emerging health needs are adequately addressed. Patient Instructions - Continue medications as prescribed: amlodipine and atorvastatin. - Consider lifestyle changes for reducing gastro symptoms and increased cardiovascular health. - Use Voltaren gel for arthritis management instead of ibuprofen. - Follow up with orthopedic referral for left-hand evaluation. - Schedule ultrasound mammogram as recommended. - Evaluate sleep support modalities to avoid Benadryl overuse. - Discuss tetanus and shingles vaccination with pharmacy. - Prioritize balanced diet and regular exercise. - Return if new symptoms or concerns arise. Orders: Orders US breast LT complete Today R92.2 - Inconclusive mammogram US breast RT complete Today R92.2 - Inconclusive mammogram Complete Blood Count Auto Diff 1 Year R73.01 - Impaired fasting glucose Comprehensive Met. Panel 1 Year R73.01 - Impaired fasting glucose Hemoglobin A1c 1 Year R73.01 - Impaired fasting glucose Free T4 (Free Thyroxine) 1 Year R73.01 - Impaired fasting glucose Lipid Panel 1 Year E78.00 - Pure hypercholesterolemia, unspecified, R73.01 - Impaired fasting glucose Thyroid Stimulating Hormone 1 Year R73.01 - Impaired fasting glucose Vitamin B12 and Folate 1 Year R73.01 - Impaired fasting glucose Vitamin D 25-OH Total 1 Year R73.01 - Impaired fasting glucose Referrals Orthopedics Referral A48.800A - Fracture of unspecified phalanx of unspecified finger, initial encounter for closed fracture
--- OUTSIDE RECORDS SUMMARY | 2024-12-19 15:58 | XMS_ITS | Clinical Summary ---
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
== END 2024-12-19 14:33 | disposition home or self-care (01) ==
LOC: HO.HMCH 13:49
PROVIDERS: PCP Internal Medicine; Visit Provider Internal Medicine
DX: Z00.00 Encounter for general adult medical examination without abnormal findings (principal); I10 Essential (primary) hypertension; E78.00 Pure hypercholesterolemia, unspecified; R93.1 Abnormal findings on diagnostic imaging of heart and coronary circulation; K21.9 Gastro-esophageal reflux disease without esophagitis; J45.20 Mild intermittent asthma, uncomplicated; R73.01 Impaired fasting glucose; F41.1 Generalized anxiety disorder; D12.6 Benign neoplasm of colon, unspecified

== ENCOUNTER 2025-02-07 14:45 | Outpatient (REF) | payer MEDICARE, OTHER, SELFPAY ==
--- NOTE | ~2025-02-07 | MM_ITS ---
EXAMINATION: MM SCREENING DIGITAL BREAST TOMOSYNTHESIS, BILATERAL CLINICAL INFORMATION: Screening. Asymptomatic. COMPARISON: Mammography: Comparison is made with available priors TECHNIQUE: Digital breast mammography with tomosynthesis is performed in both the craniocaudal and mediolateral oblique views along with computer-aided detection (CAD). FINDINGS: The breasts are extremely dense, which lowers the sensitivity of mammography (ACR BI-RADS breast composition Category d). There are no significant masses, abnormal calcifications, or other abnormalities. MM/MM tomosynthesis screening BI IMPRESSION: No mammographic evidence of malignancy. ASSESSMENT: BI-RADS BI-RADS 1 - Negative RECOMMENDATION: Routine annual mammography screening. 1 year F/U This examination should not preclude the clinical evaluation of a suspicious palpable abnormality. This patient's information was entered into a reminder system with a target due date for their next mammogram. Electronically signed by: Daysi Silva DO 02/09/2025 08:46 AM EDT
--- OUTSIDE RECORDS SUMMARY | 2025-02-07 16:58 | XMS_ITS | Clinical Summary ---
Author Organization [address] [place] [address] Address [address] [place] [address] Phone Care Team Providers Care Histology Tech Name Role Phone Kev Romo MD Primary Care Provider [phone] Allergies Active Allergy Reactions Criticality Noted Date Comments Meperidine GI intolerance 09/03/2018 Medications buPROPion SR (WELLBUTRIN SR) 100 mg 12 hr tablet 1 tablet (100 mg total). 5 Active citalopram (CeleXA) 10 mg tablet 1 tablet (10 mg total). 5 Active amLODIPine (NORVASC) 5 mg tablet 5 Active albuterol HFA (PROAIR HFA ; PROVENTIL HFA ; VENTOLIN HFA) 90 mcg/actuation inhaler INHALE 1 PUFF BY MOUTH EVERY 4 HOURS NEEDED FOR BRONCHOSPASM 5 Active atorvastatin (LIPITOR) 40 mg tablet 1 tablet (40 mg total) 1 (one) time each day at the same time. Active fluticasone propionate (FLONASE) 50 mcg/actuation nasal spray flonase 50 mcg/act Active Encounters Date Type Department Care Team Description 01/04/2025 2:00 PM EDT Consult Orthopedic Surgery - [place] [address] [facility] [address] [place] [address] Rudi Bustamante MD Fracture of unspecified phalanx of unspecified finger, initial encounter for closed fracture from Last 3 Months Social History Tobacco Use Types Packs/Day Years Used Date Smoking Tobacco: Never Assessed Comments Unknown Sex and Gender Information Value Date Recorded Sex Assigned at Not on file Legal Sex Female 9:20 AM EDT Gender Identity Not on file Sexual Orientation Not on file Last Filed Vital Signs Vital Sign Reading Time Taken Comments Blood Pressure - - Pulse - - Temperature - - Respiratory Rate - - Oxygen Saturation - - Inhaled Oxygen Concentration - - Weight 55.8 kg (123 lb) 01/04/2025 2:37 PM EDT Height 161.3 cm (5' 3.5 ) 01/04/2025 2:37 PM EDT Body Mass Index 21.45 01/04/2025 2:37 PM EDT Plan of Treatment Upcoming Encounters Date Type Department Care Team (Late st Contact Info) Description 03/05/2025 1:00 PM EDT Office Visit Orthopedic Surgery - [place] [address] [facility] [address] [place] [id number] Rudi Bustamante MD [address] [facility] [address] [place] [address] Health Maintenance Due Date Last Done Comments Breast Cancer Screening 1960 DTaP,Tdap,and Td Vaccines (1 - Tdap) 1977 Zoster Vaccines (1 of 2) 2008 Cholesterol Screening (Lipid Panel) 12/30/2024 Colorectal Cancer Screening: Colonoscopy 12/30/2024 Depression Screening 12/30/2024 Falls Risk Assessment 12/30/2024 Hepatitis C Screening 12/30/2024 Medicare Annual Wellness Visit 12/30/2024 Osteoporosis Screening (Bone Density Screening) 12/30/2024 Social Influencers of Health Screening 12/30/2024 Hypertension/CHF/CAD Annual BMP Blood Test 01/04/2025 COVID-19 Vaccine ( season) 2025 07/26/2024, 05/09/2022, 12/07/2021, Additional history exists RSV Immunization Adult Patients (1 - 1-dose 75+ series) 2033 Pneumococcal Vaccine: 50+ Years Completed 12/17/2023, 03/22/2020 Influenza Vaccine Completed 06/20/2024, , 05/09/2022, Additional history exists HIB Vaccines Aged Out No longer eligi ble based on patient's age to complete this topic HPV Vaccines Aged Out No longer eligi ble based on patient's age to complete this topic Hepatitis A Vaccines Aged Out No long er eligible based on patient's age to complete this topic Hepatitis B Vaccines Aged Out No long er eligible based on patient's age to complete this topic IPV Vaccines Aged Out No longer eligi ble based on patient's age to complete this topic MMR Vaccines Aged Out No longer eligi ble based on patient's age to complete this topic Meningococcal ACWY Vaccine Aged Out N o longer eligible based on patient's age to complete this topic Meningococcal B Vaccine Aged Out No l onger eligible based on patient's age to complete this topic RSV Immunization Patients Under 20 months Aged Out No longer eligible based on patient's age to complete this topic Varicella Vaccines Aged Out No longer eligible based on patient's age to complete this topic Procedures Procedure Name Priority Date/Time Associated Diagnosis Comments XR HAND 3+ VIEWS LEFT Routine 01/04/2025 2:16 PM EDT Pain from Last 3 Months Results * XR Hand 3+ Views Left (01/04/2025 2:16 PM EDT) Anatomical Region Laterality Modality Upper Extremities, Hand Left Computed Radiography Narrative 01/08/2025 12:13 PM EDT Three-view x-ray of the left hand shows well-healed proximal phalanx fracture of the small finger with slight radial angulation. There is diffuse osteopenia, soft tissue shadows appear normal, no acute fractures. Degenerative changes at the thumb CMC joint as well as the PIP joints of the index long ring and small finger and small finger DIP joint arthritis. Impression: Well-healed proximal phalanx fracture of the left small finger. Rudi Bustamante MD IMG XR PROCEDURES Final Result from Last 3 Months Insurance MEDICARE [facility] Care Teams Histology Tech Relationship Specialty Start Date End Date Kev Romo MD [address] [place] [address] Dr M[address] [facility] [place] [address] PCP - General Internal Medicine 12/30/24
== END 2025-02-07 14:46 | disposition home or self-care (01) ==
LOC: HO.MAMMO 14:45
PROVIDERS: PCP Internal Medicine; Visit Provider Internal Medicine
DX: Z12.31 Encounter for screening mammogram for malignant neoplasm of breast (principal)
CPT/HCPCS: 77063; 77067

== ENCOUNTER → 2025-02-07 15:00 | Outpatient (BNV) | payer MEDICARE, OTHER, SELFPAY | PROVIDERS: PCP Internal Medicine; Visit Provider Internal Medicine | DX: Z12.31 Encounter for screening mammogram for malignant neoplasm of breast (principal) | CPT/HCPCS: 77063; 77067 ==

== ENCOUNTER 2025-03-08 14:44 | Outpatient (AMB) | payer MEDICARE, OTHER, SELFPAY ==
[2025-03-08 14:46] VITALS: BP 110/70; PULSE 60; BMI 21.6
--- NOTE | 2025-03-08 14:46 | MHC.OFFVIS ---
Vital Signs 03/08/25 14:46 Height 5 ft 4 in Weight 125 lb 10.616 oz BMI 21.6 BP 110/70 Blood Pressure Location Lt brachial Position Sitting Pulse 60 Intake Visit Reasons: 1 yr follow up Intake Note: 1 year follow-up with ekg feeling good Ambulance Operations Supervisor Required: No Allergies bee venom protein (honey bee) Allergy (Unknown, Verified 12/19/24 13:52) Hives meperidine (Demerol) Allergy (Unknown, Verified 12/19/24 13:52) vomiting Medication List - Last Reconciled 03/08/25 by Valentín Flores MD albuterol sulfate 90 mcg/actuation 1 puff PO Q4H PRN amlodipine 5 mg PO DAILY 90 days atorvastatin 40 mg PO DAILY bupropion HCl SR 100 mg PO DAILY citalopram 10 mg PO DAILY fluticasone propionate 50 mcg/actuation 1 spray intranasal DAILY ibuprofen 400 mg PO BID omega-3 fatty acids (Fish Oil Concentrate) 1,000 mg PO DAILY turmeric (bulk) 95% (Curcumin) ea miscellaneous HPI Comments Details: Negra comes for follow-up. She has been doing well. She has not had any significant exertional symptoms of chest pain or shortness of breath. She remains very active. Denies any prolonged palpitation. No shortness of breath, orthopnea, PND. Blood pressures been well controlled on current medications. LDL is extremely well optimized. She complains of fatigue and tiredness in the afternoon time but not with exertion. [facility] Medical History History of alcohol abuse Multiple nevi History of seizure Asthma Insomnia Leukopenia Allergic rhinitis Depression GERD (gastroesophageal reflux disease) Hyperlipidemia HTN (hypertension) Elevated coronary artery calcium score Surgical History Hx of cataract surgery Hx of colonoscopy Family History Father CVD (cardiovascular disease) Myocardial infarction Mother CVD (cardiovascular disease) Myocardial infarction CHF (congestive heart failure) Maternal Grandfather Prostate cancer Brother Myocardial infarction Sister Hypertension Family/Other Depression Social History Housing: House Alcohol intake: former Patient Tobacco Use Status: Former Tobacco user Tobacco use type: Cigarette Years Smoked: quit 1979 e-Cigarette/Vaping Use: Never Used Second Hand Smoke Exposure: Yes service: No Current occupational status: retired Cognitive needs: No Hearing needs: No Vision needs: Yes Review of Systems Const Denies chills, Denies fatigue, Denies fever(s), Denies frequent falls, Denies weakness, Denies weight gain and Denies weight loss ENT Denies dizziness Card Denies chest pain, Denies leg edema, Denies lightheadedness, Denies palpitations, Denies dyspnea, Denies dyspnea on exertion, Denies orthopnea and Denies other (loss of consciousness) Resp Denies cough, Denies dyspnea and Denies dyspnea on exertion GI Denies hematochezia and Denies change in stool character Musc Denies abnormal gait, Denies muscle weakness, Denies numbness, Denies radiating pain into limb and Denies tingling Neuro Denies abnormal gait, Denies dizziness, Denies frequent falls, Denies numbness, Denies tingling and Denies weakness Endo Denies fatigue and Denies palpitations Physical Exam Vital Signs: Last Vital Signs Pulse 60 03/08/25 14:46 BP 110/70 03/08/25 14:46 BMI result Body Mass Index 21.6 Const General: cooperative, comfortable, no acute distress, alert, awake and Physically active Nutritional Appearance: thin Orientation/consciousness: patient oriented x3 Limitations: no limitations Neck Neck: Yes trachea midline, Yes supple and Yes no JVD Resp Effort & Inspection: normal respiratory effort Auscultation: clear to auscultation bilaterally Cardio Jugular venous distension: no JVD Palpation: normal PMI Rate: regular rate Rhythm: regular rhythm Heart sounds: S1 normal heart sound present and S2 normal heart sound present Neuro General: patient oriented x3 and no focal motor deficits Extrem General: Yes no clubbing, cyanosis or edema Office Procedures EKG Details: EKG shows sinus bradycardia otherwise normal EKG 99984-Xfpzjcqeqxazftayu, Complete Assessment & Plan Assessment & Plan (1) Elevated coronary artery calcium score: Code(s): R93.1 - Abnormal findings on diagnostic imaging of heart and coronary circulation Category: Medical Plan: Elevated coronary calcium score suggestive of coronary atherosclerosis. Doing very well with no exertional symptoms. Currently on good medical therapy. Continue current high-intensity statin therapy with well optimized LDL at this point time. Also discussed about continue current blood pressure medications. Encouraged to maintain activity level as tolerated. Advised to call me with any new exertional symptoms. (2) HTN (hypertension): Code(s): I10 - Essential (primary) hypertension Category: Medical Qualifiers: Hypertension type: essential hypertension Qualified Code(s): I10 - Essential (primary) hypertension Plan: Hypertension which is currently well optimized advised to monitor blood pressure at home maintain a log. Goal blood pressure less than 130/84. Low-salt diet was discussed. Continue maintain heart healthy lifestyle. She understands management well. Will follow up in the clinic in 1 year's time, sooner p.r.n.. Thank you for allowing me to partake in her care Coding Level of Care Code Est Pt Level 4 (50348) Complex EM visit Add On G2211 Diagnoses Elevated coronary artery calcium score R93.1 Essential hypertension I10 Hypertension type: essential hypertension CPT Codes EKG - CPT: 49526-Kzwnrvmcrxhyioqyx, Complete ([id number])
--- OUTSIDE RECORDS SUMMARY | 2025-03-08 15:28 | XMS_ITS | Data Portability ---
Author Organization [place] [facility] Address [address] [address] Care Team Providers Care Continuous Yarn Dyeing Machine Operator Name Role Phone Unavailable Primary Care Provider Unavailabl e Assessment No assessment recorded. Plan of Treatment Reminders Order Date Submit Date Provider Last Modified By Organization Details Last Modified Time Details Appointments None recorded . Lab None recorded . Referral occupati onal therapis t referral 2024 025 [facility] (Inocente Rich), [address] [place], [address], 5 15:40:00 occupati onal therapis t referral 2024 025 n[facility]Al[facility] [place] ([facility]), [address], [address], [place], [address], 5 11:47:07 Procedures None recorded . Surgeries [...] By Organization Details Last Modified Time 09/15/2024 [id number] x-ray reason: pain Imaging orders: True AP, lateral and oblique right hand were ordered, obtained, and interpreted from an orthopaedic standpoint Hand xrays: right Hand 3 view xray show non-displaced fifth metacarpal base fracture with non-displaced small finger proximal phalanx fracture. X-ray impression: Right 5th metacarpal base and small finger proximal phalanx fracture [id number] Not available 09/15/2024 12:40:25 09/22/2024 [id number] x-ray reason: pain Imaging orders: True AP, lateral and oblique right hand were ordered, obtained, and interpreted from an orthopaedic standpoint Hand xrays: right Hand 3 view xray show non-displaced fifth metacarpal base fracture with non-displaced small finger proximal phalanx fracture. X-ray impression: Right 5th metacarpal base and small finger proximal phalanx fracture Not available 09/22/2024 13:15:18 10/13/2024 [id number] x-ray reason: pain Imaging orders: True AP, lateral and oblique right hand were ordered, obtained, and interpreted from an orthopaedic standpoint Hand xrays: right Hand 3 view xray show non-displaced fifth metacarpal base fracture with non-displaced small finger proximal phalanx fracture. X-ray impression: Healing Right 5th metacarpal base and small finger proximal phalanx fracture [id number] Not available 10/13/2024 12:40:39 11/07/2024 [id number] x-ray reason: pain Imaging orders: True AP, lateral and oblique right hand were ordered, obtained, and interpreted from an orthopaedic standpoint Hand xrays: right Hand 3 view xray show non-displaced fifth metacarpal base fracture with non-displaced small finger proximal phalanx fracture. X-ray impression: Healed Right 5th metacarpal base and small finger proximal phalanx fracture [id number] Not available 11/07/2024 12:50:17 Reason for Referral Occupational Therapist Refer ral for Fracture of proximal phalanx of finger left fifth metacarpal base and small finger proximal phalanx fractures 09/09/24 Referring Physician: Laney Doss Physician Special Educator, Encounter Date: 10/13/2024 Occupational Therapist Refer ral for Fracture of proximal phalanx of finger left small finger proximal phalanx and fifth metacarpal fracture Referring Physician: Laney Doss Physician Special Educator, Encounter Date: 11/07/2024 Problems Name Problem SNOMED Code Status Onset Date Resolution Date Notes Provider Name and Address Organization Details Recorded Time Closed fracture of base of fifth metacarpal bone of left hand 7943160009940 9109 Active 2024 [place] DOMINGUEZ [address], [address], [address] , [facility] - [facility] 12:42:27 Fracture of proximal phalanx of finger 376486834 Active 2024 AZ DOMINGUZE [address], [address] [employer] [address], [place], [address] , [facility] - [facility] 12:42:28 Problem Notes None recorded. Procedures Surgical History Date Name Laterality Status Provider Name and Address Organization Details Recorded Time FOI CAST SHORT ARM ADULT LT completed AZ DOMINGUEZ [address], [address] [employer] [address], [place], [address], [facility] - [facility] 09/22/2024 13:13:52 5 FOI CAST WATERPROOF MATERIAL SHORT ARM S47 ($45) completed AZ DOMINGUEZ [address], [address],[place], [address], [facility] - [facility] 09/22/2024 13:13:57 5 [facility] SPLINT SHORT ARM ADULT PLASTER LT completed AZ DOMINGUEZ[address], [address],[place], [address], [facility] - [facility] 09/15/2024 11:34:05 Cataract Surgery completed Shelley [place] - [facility] 10/13/2024 11:03:11 Imaging Results None recorded. Procedure Notes None recorded. Medical Equipment None Reported. Allergies Allergen ID Allergen Name Allergen Category Reaction Reaction Severity Criticality Documentation Date Start Date Code Code System Note Provider Name and Address Organization Details Recorded Time 321721 Demerol medicatio n Not available Not available Not available 09/14/20242024 80152 1 RxNorm Not Available Dash Scheduling by [employer] 12:36:24 Medications Name Sig Start Date Stop Date [...] Information n ot available 09/15/2024 What Is The Highest Grade Or Level Of School You Have Completed Or The Highest Degree You Have Received? HH34064-7 [email or web address] Information not available 09/15/2024 Are You Currently Taking Prescription Pain Medications? No [email or web address] Information not available 09/15/2024 Are You Currently Being Seen For Pain Management? No [email or web address] Information not available 09/15/2024 I Have Received Hospice Services This Year Or Am Currently Receiving Hospice Care No [email or web address] Information not available 09/15/2024 I Have Designated A Power Of Internal Carver/Surrogate Decision Maker. If Yes, Who Is This? [...] not available 09/15/2024 Sex: Unknown Functional Status Question Answer Note LastModified by Organization D etails LastModified Time What is your level of alcohol consumption? None [email or web address] Information not available 09/15/2024 Are you currently employed? No [email or web address] Information not available 09/15/2024 What is your occupation? Retired [email or web address] Information not available 09/15/2024 Mental Status None recorded. Family History Nothing Reported. Medical History Condition Response Anxiety/Depression Y Arthritis Y Asthma/Lung Disease Y Hypertension Y Gynecological HistoryNo gynecological history recorded. Obstetrics History GPAL:G 0 P 0 0 0 0 Past Encounters Encounter ID Performer Location Encounter Start Date Encounter Closed Date Diagnosis/Indication Diagnosis SNOMED-CT Code Diagnosis ICD10 Code Diagnosis Note [id number] NATHEN COLLADO MD [facility] [address] [place] [address] 09/15/2024 10:52:07 09/15/2024 12:02:46 Pain of left hand 0964805990 84651 M79.642 Fracture o f proximal phalanx of finger 579401789 S62.647D left small finger proximal phalanx fractureth [...] of fifth metacarpal bone of left hand 2323559170 6608134 S62.347A left fifth metacarpal base fractureth e [...] x-rays and likely transition into a cast. [id number] NATHEN COLLADO MD [facility] [address] [place] [address] 09/22/2024 09:59:50 09/22/2024 10:49:38 Closed fracture of base of fifth metacarpal bone of left hand 8140572770 9385641 S62.347A left fifth metacarpal base fractureth e fracture appears to be non displaced on today's x-ray. She should do fine with immobiliza tion. she was placed in a short arm ulnar guttercast . She will follow-up in 3 weeks for repeat x-rays out of the cast will likely transition her to a brace and sonya taping. Fracture o f proximal phalanx of finger 690303588 S62.647D left small finger proximal phalanx fractureth [...] her to a brace and sonya taping. [id number] NATHEN COLLADO MD [facility] [address] [place] [address] 10/13/2024 11:01:43 10/13/2024 12:10:34 Closed fracture of base of fifth metacarpal bone of left hand 2957794556 6463890 S62.347A left fifth metacarpal base fractureth e [...] Fracture o f proximal phalanx of finger 515565039 S62.647D left small finger proximal phalanx fracturesh e was transition ed into sonya taping the ring and small fingers. She will continue to do this for at least the next 2 weeks. We will get her into formal therapy for range of motion at this time. She will follow-up in 3-4 weeks for repeat x-rays. Pain of left hand 201329 2765 60752 M79.647 [id number] NATHEN COLLADO MD [facility] [address] [place] [address] 11/07/2024 08:33:20 11/07/2024 09:02:19 Closed fracture of base of fifth metacarpal bone of left hand 2198263274 8440283 S62.347A left fifth metacarpal base fractureth e fracture appears to be non displaced on today's x-ray.X-ra ys showed healed fractures. She is nontender. She will discontinu e the brace at this point. She will continue working on a home exercise program as well as physical therapy Fracture o f proximal phalanx of finger 784165656 S62.647D left small finger proximal phalanx fracturesh e was transition ed into sonya taping the ring and small fingers with activity. She currently has no restrictio n she will work on advancing activity as tolerated x-rays show a healed fracture. If she continues to have stiffness she will start back with therapy in [facility]. Health Concerns Section Related Observation LastModified by Organization Detai ls LastModified Time None Recorded Concern Status LastModified by Organization Details LastModified Time None Recorded Advance Directives Directive Y: Payers Insurance Date Sequence Insurance Name Policy Number Policy Velasco Covered Member ID Velasco Member ID Guarantor Name 11/08/2024 2 FOR LIFE ( - MEDICARE SUPPLEMENT) Negra Villegas [id number] Negra Villegas 11/12/2024 1 [place] Negra H Villegas [id number] Negra Villegas 11/07/2024 [employer] (MEDICARE DME REGION C) Negra H Villegas [id number] Negra Villegas 11/03/2024 1 INTERFACE REVIEW REQUIRED Negra Villegas Negra Villegas 11/07/2024 [employer] - SPECIALITY CLAIMS (MEDICARE DME REGION A) Negra H Villegas [id number] Negra Villegas 12/01/2024 2 FOR LIFE ( - MEDICARE SUPPLEMENT) Negra Villegas [id number] Negra Villegas Notes Date Note Type Note Provider Name and Address Organization Details Recorded Time 09/15/2024 text/html chief complaint: L small finger fxPt states that 1 week ago she fell while playing pickle ball. Pt states that she went to the ER that same night, and was not reduced. AZ DOMINGUEZ [address], [address],[employer] [address] [employer] [address], [place], [address], [facility] - [facility] [employer] [facility] 09/15/2024 12:44:14 09/22/2024 text/html chief complaint: left small finger proximal phalanx fractureL ulnar gutter splint 09/15/2024Pt states that she is doing well. AZ DOMINGUEZ [address], [address] [employer] [address], [place], [address], [facility] - [facility] [employer] [facility] 09/22/2024 13:15:53 10/13/2024 text/html chief complaint: left fifth metacarpal base fracture and left small finger proximal phalanx fracturePt states that she is doing well. AZ DOMINGUEZ [address], [address], [place], [address], [facility] [employer] [facility] 10/13/2024 12:41:01 11/07/2024 text/html Chief complaint: left fifth metacarpal base fractureleft small finger proximal phalanx fracturept states that she is doing well and making progress. AZ DOMINGUEZ [address], [address], [place], [address], [facility] [employer] 11/07/2024 12:50:50 OBGyn Episode No OBEpisode recorded.
--- OUTSIDE RECORDS SUMMARY | 2025-03-08 15:28 | XMS_ITS | Clinical Summary ---
Author Organization [facility] Address [address] [place] [address] Care Team Providers Care Pharmacist'S Aide Name Role Phone Unavailable Primary Care Provider [...]
--- OUTSIDE RECORDS SUMMARY | 2025-03-08 15:28 | XMS_ITS | Clinical Summary ---
Author Organization 175 [facility] Address [address] [place] [address] Phone Care Team Providers Care Bath Tester Name Role Phone Kev Romo MD Primary Care Provider [phone] Allergies Active Allergy Reactions Criticality Noted Date [...] Encounters Date Type Department Care Team Description 03/05/2025 1:00 PM EDT Office Visit Orthopedic [facility] [address] [facility] [address] [place] [address] Rudi Bustamante MD Follow-up exam (Primary Dx) 01/04/2025 2:00 PM EDT Consult Orthopedic [facility] 175 [facility] [address] [place] [address] Rudi Bustamante MD Fracture of [...] 01/04/2025 2:37 PM EDT Plan of Treatment Health Maintenance Due Date Last Done Comments Breast Cancer Screening 1960 Zoster Vaccines (1 of 2) 2008 Cholesterol Screening (Lipid Panel) 12/30/2024 Colorectal Cancer Screening: Colonoscopy 12/30/2024 Depression Screening 12/30/2024 Falls Risk Assessment 12/30/2024 Hepatitis C Screening 12/30/2024 Medicare Annual Wellness Visit 12/30/2024 Osteoporosis Screening (Bone Density Screening) 12/30/2024 Social Influencers of Health Screening 12/30/2024 Hypertension/CHF/CAD Annual BMP Blood Test 01/04/2025 Influenza Vaccine (#1) 2025 , 06/15/2023, 05/09/2022, Additional history exists RSV Immunization Adult Patients (1 - 1-dose 75+ series) 2033 DTaP,Tdap,and Td Vaccines (2 - Td or Tdap) 01/22/2035 01/22/2025 Pneumococcal Vaccine: 50+ Years Completed 12/17/2023, 03/22/2020 COVID-19 Vaccine Completed 01/22/2025, 11/2023, 05/09/2022, Additional history exists HIB Vaccines Aged [...] Name Priority Date/Time Associated Diagnosis Comments XR FINGERS 2+ VIEWS LEFT Routine 03/05/2025 1:08 PM EDT Follow-up exam XR HAND 3+ VIEWS LEFT Routine 01/04/2025 2:16 PM EDT Pain from Last 3 Months Results * XR Fingers 2+ Views Left (03/05/2025 1:08 PM EDT) Anatomical Region Laterality Modality Upper Extremities, Fingers Left Compu sid Radiography Narrative 03/05/2025 1:48 PM EDT Three-view x-rays of the left small finger show no acute fracture or dislocation, there is an angular deformity of the proximal phalanx consistent with a healed proximal phalanx fracture of the small finger. 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 Care Teams Bath Tester Relationship Specialty Start Date End Date Kev Romo MD [address] [place] [address] [address] [facility] [place] [address] PCP - General Internal Medicine 12/30/24
== END 2025-03-08 15:07 | disposition home or self-care (01) ==
LOC: HO.HCS 14:45
PROVIDERS: PCP Internal Medicine; Visit Provider Internal Medicine Cardiovascular Disease
DX: R93.1 Abnormal findings on diagnostic imaging of heart and coronary circulation (principal); I10 Essential (primary) hypertension
CPT/HCPCS: 93010; 99214; G2211

== ENCOUNTER → 2025-03-08 14:44 | Outpatient (BNVA) | payer MEDICARE, OTHER, SELFPAY | PROVIDERS: PCP Internal Medicine; Visit Provider Internal Medicine Cardiovascular Disease | DX: R93.1 Abnormal findings on diagnostic imaging of heart and coronary circulation (principal); I10 Essential (primary) hypertension; R00.1 Bradycardia, unspecified | CPT/HCPCS: 93005; 99212 ==

== ENCOUNTER → 2025-04-02 12:00 | Outpatient (BNV) | payer MEDICARE, OTHER, SELFPAY | PROVIDERS: PCP Internal Medicine; Visit Provider Internal Medicine | DX: R92.2 Inconclusive mammogram (principal) | CPT/HCPCS: 76641 ==

== ENCOUNTER 2025-04-02 12:05 | Outpatient (REF) | payer MEDICARE, OTHER, SELFPAY ==
--- NOTE | ~2025-04-02 | US_ITS ---
EXAMINATION: US SCREENING ULTRASOUND BREAST, BILATERAL CLINICAL INFORMATION: Dense breasts on mammography. Screening ultrasound. COMPARISON: None available. TECHNIQUE: Ultrasound is performed using grayscale imaging and color Doppler. Imaging is performed to include the four quadrants and retroareolar region. Both breasts are imaged. FINDINGS: Right breast: There is no suspicious finding by ultrasound. There is no solid mass or focal architectural abnormality. Left breast: There is no suspicious finding by ultrasound. There is no solid mass or focal architectural abnormality. US/US breast BI complete IMPRESSION: No suspicious findings on screening breast ultrasound. ASSESSMENT: BI-RADS 1 - Negative RECOMMENDATION: 1 year F/U This patient's information was entered into a reminder system with a target due date for their next mammogram. Electronically signed by: Daysi Silva DO 04/02/2025 02:22 PM EDT
--- OUTSIDE RECORDS SUMMARY | 2025-04-02 12:29 | XMS_ITS | Clinical Summary ---
Author Organization 175 [facility] Address [address] [place] [address] Phone Care Team Providers Care Hardwood Floor Sander Name Role Phone Kev Romo MD Primary Care Provider [phone] Allergies Active Allergy Reactions Criticality Noted Date [...] 03/05/2025 1:00 PM EDT Office Visit Orthopedic [facility] [address] [facility] [address] [place] [address] Rudi Bustamante MD Follow-up exam (Primary Dx) 01/04/2025 2:00 PM EDT Consult Orthopedic [facility] 175 [facility] [address] [place] [address] Rudi Bustamante MD Fracture of [...] 1960 Zoster Vaccines (1 of 2) 2008 Depression Screening 08/23/2024 Cholesterol Screening (Lipid Panel) 12/30/2024 Colorectal Cancer Screening: Colonoscopy 12/30/2024 Falls Risk Assessment 12/30/2024 Hepatitis C [...] from Last 3 Months Insurance MEDICARE [facility] Care Teams Hardwood Floor Sander Relationship Specialty Start Date End Date Kev Romo MD [address] [place] [address] [address] [facility] [place] [address] PCP - General Internal Medicine 12/30/24
--- OUTSIDE RECORDS SUMMARY | 2025-04-02 12:29 | XMS_ITS | Clinical Summary ---
Author Organization [facility] Address [address] [place] [address] Care Team Providers Care Flake Miller Helper Name Role Phone Unavailable Primary Care Provider [...]
== END 2025-04-02 12:06 | disposition home or self-care (01) ==
LOC: HO.MAMMO 12:05
PROVIDERS: PCP Internal Medicine; Visit Provider Internal Medicine
DX: R92.2 Inconclusive mammogram (principal)
CPT/HCPCS: 76641